=== PATIENT | female | born 1985 | race Caucasian/White ===

== ENCOUNTER 2017-04-16 23:24 | Emergency (ER) | payer OTHER ==
[2017-04-16 23:33] VITALS: BP 147/93; PULSE 116; RESP 20; TEMP 100.5
[2017-04-17] MEDS ORDERED: KETOROLAC 30 MG/ML 1 ML VIAL IM STA (00:35)
[2017-04-17] MEDS ORDERED: CLINDAMYCIN 150 MG CAP PO STA (00:37)
[2017-04-17] MEDS ORDERED: ACETAMINOPHEN TAB 325 MG TAB PO STA (00:38)
--- NOTE | 2017-04-17 00:41 | ED ---
ENT HPI - General Chief complaint: ENT Stated complaint: dental pain Time Seen by Provider: 04/16/17 23:38 Source: patient, RN notes reviewed Mode of arrival: wheelchair Limitations: no limitations - History of Present Illness Initial comments: patient is a 31-year-old of female presents to the emergency room for evaluation dental pain. Patient states she has had dental pain for about a week. She just finished a course of amoxicillin. Patient states she still having pain. Patient states she has an appointment with oral surgeon on to have all of her teeth pulled. Patient states having worsening pain in her right upper tooth. Patient denies any known fevers. Patient denies nausea or vomiting. Patient denies headache or dizziness. Patient denies throat pain , ear pain, chest pain, shortness of breath, nausea, vomiting. - Related Data Home Medications Medication Instructions Recorded Confirmed Amoxicillin 500 mg PO 08/05/16 Previous Rx's Medication Instructions Recorded Acetaminophen-Codeine 300-30mg 1 tab PO Q4H PRN #20 tablet 08/05/16 [Tylenol #3] Clindamycin [Cleocin] 300 mg PO Q6H #40 capsule 04/17/17 HYDROcodone/APAP 5-325MG [Kelly 1 tab PO Q6HR PRN #12 tab 04/17/17 5-325] Allergies Allergy/AdvReac Type Severity Reaction Status Date / Time No Known Allergies Allergy Verified 04/16/17 23:33 Review of Systems ROS Statement: Those systems with pertinent positive or pertinent negative responses have been documented in the HPI. ROS Other: All systems not noted in ROS Statement are negative. Past Medical History Past Medical History: Fibromyalgia, GERD/Reflux, Seizure Disorder Additional Past Medical History / Comment(s): migraines, KIDNEY STONE , RECENT UTI History of Any Multi-Drug Resistant Organisms: None Reported Past Surgical History: Section Additional Past Surgical History / Comment(s): ectopic, rt tube Past Anesthesia/Blood Transfusion Reactions: No Reported Reaction Past Psychological History: Depression Smoking Status: Current every day smoker Past Alcohol Use History: None Reported Past Drug Use History: None Reported - Past Family History Mother Family Medical History: Pneumonia Additional Family Medical History / Comment(s): HEART PROBLEMS PER PT. General Exam - General Exam Comments Initial Comments: sitting in exam room, no acute distress. Limitations: no limitations General appearance: alert, in no apparent distress Head exam: Present: atraumatic, normocephalic, normal inspection Eye exam: Present: normal appearance Expanded Teeth exam: Present: dental caries (multiple), fractured tooth # (7), dental tenderness # (7) Neck exam: Present: normal inspection Respiratory exam: Present: normal lung sounds bilaterally. Absent: respiratory distress Cardiovascular Exam: Present: normal rhythm, tachycardia, normal heart sounds Extremities exam: Present: normal inspection Back exam: Present: normal inspection Neurological exam: Present: alert, oriented X3, CN II-XII intact, normal gait Psychiatric exam: Present: normal affect, normal mood Skin exam: Present: warm, dry, intact, normal color. Absent: rash Course Vital Signs 04/16/17 04/17/17 23:28 00:50 Temperature 100.5 F H 100.5 F H Pulse Rate 116 H 116 H Respiratory 20 20 Rate Blood Pressure 147/93 147/93 O2 Sat by Pulse 99 99 Oximetry Medical Decision Making - Medical Decision Making patient is a 31-year-old female presents to the emergency room for evaluation of dental pain. Patient be placed on clindamycin and pain meds and advised to follow-up with dentist. Patient states she understands everything that was discussed with her. Return parameters discussed. Case discussed Dr. Toth. Disposition Clinical Impression: Dental cavity, Pain, dental Disposition: HOME SELF-CARE Condition: Good Instructions: Dental Caries (ED), Toothache (ED) Additional Instructions: Please follow up with a dentist. If you do not have a dentist, you may contact [facility]. Phone number is [phone] for existing clients. For new clients you may call [phone]. Another option is you have is the [facility]. Phone number is [phone]. Medications as directed. [place] gargles. Cold fluids can sometimes help with pain as well. Return to the Emergency Room for any worsening or changing symptoms. Use cold compresses to the outside of the face. Prescriptions: HYDROcodone/APAP 5-325MG [Kelly 5-325] 1 tab PO Q6HR PRN #12 tab PRN Reason: Pain Clindamycin [Cleocin] 300 mg PO Q6H #40 capsule Referrals: None,Stated [Primary Care Provider] - 1-2 days Time of Disposition: 00:38
== END 2017-04-17 00:49 | disposition home or self-care (01) ==
LOC: EC 23:24
DX: K02.9 Dental caries, unspecified (principal); F17.200 Nicotine dependence, unspecified, uncomplicated
CPT/HCPCS: 99283; 96372; J1885

== ENCOUNTER 2019-01-22 16:17 | Emergency (ER) | payer OTHER ==
[2019-01-22 16:30] VITALS: RESP 22; TEMP 98.6
[2019-01-22 17:19] LABS: Anisocytosis Slight; Basophils % (A) 0 %; Eosinophils % (A) 0 %; HCT 37.1 % (34.0-46.0); HGB 11.5 gm/dL (11.4-16.0); Hypochromasia Slight; Lymphocytes % (A) 31 %; MCH 23.1 pg (25.0-35.0); MCHC 31.1 g/dL (31.0-37.0); MCV 74.3 fL (80.0-100.0); Mean Platelet Volume 7.6; Microcytosis Slight; Monocytes # (A) 0.3 k/uL (0-1.0); Monocytes % (A) 5 %; Neutrophils % (A) 63 %; Platelet Count 226 k/uL (150-450); RBC 4.99 m/uL (3.80-5.40); RDW 16.6 % (11.5-15.5); WBC 6.5 k/uL (3.8-10.6)
[2019-01-22 17:22] LABS: ALT 33 U/L (9-52); AST 27 U/L (14-36); Albumin 4.2 g/dL (3.5-5.0); Alkaline Phosphatase 99 U/L (38-126); Anion Gap 9 mmol/L; Blood Urea Nitrogen 12 mg/dL (7-17); Carbon Dioxide 27 mmol/L (22-30); Chloride 101 mmol/L (98-107); D-Dimer 0.3 mg/L FEU (<0.60); Glucose 90 mg/dL (74-99); Lipase 74 U/L (23-300); Magnesium 1.7 mg/dL (1.6-2.3); Partial Thromboplastin Time 26.2 sec (22.0-30.0); Potassium 3.5 mmol/L (3.5-5.1); Prothrombin Time 10.3 sec (9.0-12.0); Sodium 137 mmol/L (137-145); Total Bilirubin 0.6 mg/dL (0.2-1.3); Total Protein 7.1 g/dL (6.3-8.2)
--- NOTE | 2019-01-22 18:13 | XR ---
EXAMINATION TYPE: XR chest 2V DATE OF EXAM: 01/22/2019 COMPARISON: None HISTORY: 33-year-old female with chest pain TECHNIQUE: PA and lateral views FINDINGS: The cardiomediastinal silhouette, aorta, and pulmonary vasculature are within normal limits. Small am ount of focal opacity at the cardiac apex. No definite consolidation or pleural effusion. IMPRESSION: Focal inferior lingular opacity could represent a prominent epicardial fat pad or focus of early pneu monia. Correlate with patient's symptoms.
--- NOTE | 2019-01-22 19:02 | ED ---
Chest Pain HPI - General Chief Complaint: Chest Pain Stated Complaint: chest pain Time Seen by Provider: 01/22/19 16:36 Source: patient Mode of arrival: ambulatory Limitations: no limitations - History of Present Illness Initial Comments: The patient is a 33-year-old female who presents to the emergency room with complaint of chest pain. The patient notes the pain has been going on for the past 2 months however got progressively worse over the past 2 days. The pain is described as a pressure sensation with intermittent sharp shooting pains. Denie s a pleuritic chest pain. The pain is not reproducible with palpation. She does admit to a cough with yellow sputum production. Admits to chills however denies any fevers. She denies any sick contacts or recent travel. No hemoptysis. She has not taken any medications for her symptoms. She has not followed up with a doctor. She does admit that she has had previous Holter monitoring and an echo. This was done several years ago. She admits to a family history of cardiac disease. Her mother had significant heart problems diagnosed at 42. Patient denies any unilateral calf pain or swelling. No exogenous hormone use. No recent surgeries. She denies ripping or tearing sensation to her back. Denies abdominal pain, nausea or vomiting. She denies any changes in her urination. No changes in her bowel habits. Denies any abnormal vaginal bleeding or discharge. There are no bleeding, precipitating or modifying factors - Related Data Home Medications Medication Instructions Recorded Confirmed Amoxicillin 500 mg PO 08/05/16 Previous Rx's Medication Instructions Recorded Acetaminophen-Codeine 300-30mg 1 tab PO Q4H PRN #20 tablet 08/05/16 [Tylenol #3] Clindamycin [Cleocin] 300 mg PO Q6H #40 capsule 04/17/17 HYDROcodone/APAP 5-325MG [Merom 1 tab PO Q6HR PRN #12 tab 04/17/17 5-325] Amoxic-Pot Clav 875-125Mg 1 tab PO Q12HR 5 Days #10 tablet 01/22/19 [Augmentin 875-125] Azithromycin [Zithromax Z-pack] 250 mg PO DIRECTED #1 pack 01/22/19 Allergies Allergy/AdvReac Type Severity Reaction Status Date / Time No Known Allergies Allergy Verified 04/16/17 23:33 Review of Systems ROS Statement: Those systems with pertinent positive or pertinent negative responses have been documented in the HPI. ROS Other: All systems not noted in ROS Statement are negative. EKG Findings - EKG Comments: EKG Findings:: EKG demonstrates a normal sinus rhythm with a ventricular rate of 98. [place] interval 148. QRS 74. QTC of 459. There are no acute ST segment elevations or depressions concerning for ischemic changes. No signs of Infante Parkinson White or Brugada syndrome. Past Medical History Past Medical History: Fibromyalgia, GERD/Reflux, Seizure Disorder Additional Past Medical History / Comment(s): migraines, KIDNEY STONE , RECENT UTI History of Any Multi-Drug Resistant Organisms: None Reported Past Surgical History: Section Additional Past Surgical History / Comment(s): ectopic, rt tube Past Anesthesia/Blood Transfusion Reactions: No Reported Reaction Past Psychological History: Depression Smoking Status: Current every day smoker Past Alcohol Use History: None Reported Past Drug Use History: None Reported - Past Family History Mother Family Medical History: Pneumonia Additional Family Medical History / Comment(s): HEART PROBLEMS PER PT. General Exam Limitations: no limitations General appearance: alert, in no apparent distress Head exam: Present: atraumatic, normocephalic, normal inspection Eye exam: Present: normal appearance, PERRL, EOMI. Absent: scleral icterus, conjunctival injection, periorbital swelling ENT exam: Present: normal exam, mucous membranes moist Neck exam: Present: normal inspection. Absent: tenderness, meningismus, lymphadenopathy Respiratory exam: Present: normal lung sounds bilaterally. Absent: respiratory distress, wheezes, rales, rhonchi, stridor Cardiovascular Exam: Present: regular rate, normal rhythm, normal heart sounds. Absent: systolic murmur, diastolic murmur, rubs, gallop, clicks GI/Abdominal exam: Present: soft, normal bowel sounds. Absent: distended, tenderness, guarding, rebound, rigid Extremities exam: Present: normal inspection, full ROM, normal capillary refill. Absent: tenderness, pedal edema, joint swelling, calf tenderness Back exam: Present: normal inspection Neurological exam: Present: alert, oriented X3, CN II-XII intact Psychiatric exam: Present: normal affect, normal mood Skin exam: Present: warm, dry, intact, normal color. Absent: rash Course Vital Signs 05/11/19 05/11/19 05/11/19 16:27 18:19 18:20 Temperature 98.6 F Pulse Rate 111 H 91 Respiratory 22 Rate Blood Pressure 149/79 127/78 O2 Sat by Pulse 100 100 100 Oximetry 01/22/19 01/22/19 01/22/19 18:30 18:40 18:50 Temperature Pulse Rate 101 H 87 94 Respiratory Rate Blood Pressure 127/78 127/73 126/81 O2 Sat by Pulse 100 99 100 Oximetry 01/22/19 01/22/19 01/22/19 19:00 19:10 19:20 Temperature Pulse Rate 98 101 H 96 Respiratory Rate Blood Pressure 126/81 144/81 124/77 O2 Sat by Pulse 100 100 100 Oximetry 01/22/19 19:30 Temperature Pulse Rate Respiratory Rate Blood Pressure 124/77 O2 Sat by Pulse Oximetry Chest Pain MDM - Differential Diagnosis Acute chest pain, acute cough, community-acquired pneumonia - MDM The patient was seen by myself in room 22. She is hooked continuous pulse ox and cardiac monitoring. A 12-lead EKG is performed. Laboratory studies were conducted and the patient went for a chest x-ray. She does stay for 2 troponins which are both negative. Because the patient reports a productive cough with an opacity seen in the lingula, I did recommend treatment with antibiotics. Patient did agree to this. She is given a prescription for azithromycin and Augmentin. She is to take the medications as directed and follow-up with her primary care physician. She'll need a repeat chest x-ray in 6 weeks. She'll also need a full cardiac evaluation to include Holter monitoring, stress test and echo. The patient is resting comfortably without signs of respiratory distress. She has no current chest pain at this time. I did inform the patient she should quit smoking. Patient understood this. Should she have any new or worsening symptoms, she should return to the emergency room. The patient was in agreement to the plan and discharge home in stable condition Disposition Clinical Impression: Atypical chest pain, Pneumonia Disposition: HOME SELF-CARE Condition: Stable Instructions (If sedation given, give patient instructions): Chest Pain (ED), Pneumonia (ED) Prescriptions: Amoxic-Pot Clav 875-125Mg [Augmentin 875-125] 1 tab PO Q12HR 5 Days #10 tablet Azithromycin [Zithromax Z-pack] 250 mg PO DIRECTED #1 pack Is patient prescribed a controlled substance at d/c from ED?: No Referrals: None,Stated [Primary Care Provider] - 1-2 days Time of Disposition: 19:44
[2019-01-22 19:36] VITALS: BP 124/77; PULSE 96
== END 2019-01-22 19:46 | disposition home or self-care (01) ==
LOC: EC 16:17
DX: J18.9 Pneumonia, unspecified organism (principal); F17.200 Nicotine dependence, unspecified, uncomplicated
CPT/HCPCS: 36415; 71046; 80053; 83690; 83735; 84484; 85025; 85379; 85610; 85730; 93005; 99285

== ENCOUNTER → 2019-03-28 | Outpatient (CLI) | payer OTHER ==
--- NOTE | 2019-03-28 12:54 | XR ---
EXAMINATION TYPE: XR cervical spine comp DATE OF EXAM: 03/28/2019 COMPARISON: NONE HISTORY: Pain TECHNIQUE: Four views are submitted. FINDINGS: The odontoid is intact. There are no compression deformities. The prevertebral soft tissue structur es are within normal limits. Degenerative disc disease and spurring C5-C6 with straightening of the cervical spine. IMPRESSION: 1. Moderate to severe degenerative disc disease C5-C6. Recommend MRI follow-up.
== END | disposition home or self-care (01) ==
LOC: RADXRMAIN 12:25
PROVIDERS: ATTEND Internal Medicine
DX: M50.322 Other cervical disc degeneration at C5-C6 level (principal)
CPT/HCPCS: 72050

== ENCOUNTER → 2019-04-05 | Outpatient (CLI) | payer OTHER ==
--- NOTE | 2019-04-05 13:03 | MR ---
EXAMINATION TYPE: MR cervical spine wo con DATE OF EXAM: 04/05/2019 COMPARISON: Plain film 03/28/2019 HISTORY: Neck pain TECHNIQUE: Multiplanar, multisequence images of the cervical spine were acquired. C2-C3: Minimal posterior disc bulge. No significant spinal stenosis or foraminal encroachment. C3-C4: There is posterior extension of small disc bulge which may contact the anterior cervical cord. No significant central stenosis or foraminal encroachment. C4-C5: Minimal posterior disc bulge causes slight anterior mass effect on the thecal sac. No signific ant central stenosis or foraminal encroachment. C5-C6: Left posterior paracentral extension of endplate disc complex causes anterolateral mass effect on the thecal sac and possibly cord contact. No significant foraminal encroachment. Only mild spinal stenosis. C6-C7: Minimal posterior disc bulge causes slight anterior mass effect on the thecal sac. No signific ant central stenosis. No foraminal encroachment. C7-T1: No evidence for degenerative disc disease. No disc bulge/herniation or protrusion. No Canal stenosis. Foramina are patent bilaterally. Cervical segments are intact. There is normal alignment. Cervical spinal cord is of normal signal. Craniovertebral junction relationships are within normal limits. There is loss of disc height and s ignal at C5-6, associated spondylosis. IMPRESSION: Mild multilevel degenerative disc disease as described.
== END | disposition home or self-care (01) ==
LOC: RADMRIMAIN 09:00
PROVIDERS: ATTEND Internal Medicine
DX: M50.322 Other cervical disc degeneration at C5-C6 level (principal)
CPT/HCPCS: 72141

== ENCOUNTER → 2019-06-09 | Outpatient (CLI) | payer OTHER ==
[2019-06-09 17:06] LABS: Anisocytosis Slight; HCT 40.3 % (34.0-46.0); HGB 13.4 gm/dL (11.4-16.0); MCH 25.3 pg (25.0-35.0); MCHC 33.2 g/dL (31.0-37.0); MCV 76.3 fL (80.0-100.0); Mean Platelet Volume 7.6; Microcytosis Slight; Platelet Count 222 k/uL (150-450); RBC 5.28 m/uL (3.80-5.40); RDW 17.8 % (11.5-15.5); Reticulocyte % 1.4 % (0.5-2.0); WBC 9.2 k/uL (3.8-10.6)
[2019-06-09 17:12] LABS: Appearance,Urine Cloudy (Clear); Bacteria,Urine Rare /hpf; Bilirubin,Urine Negative (Negative); Blood,Urine Negative (Negative); Color,Urine Yellow; Glucose,Urine (UA) Negative (Negative); Ketones,Urine Trace (Negative); Leukocyte Esterase,Urine Negative (Negative); Mucus,Urine Many /hpf; Nitrite,Urine Negative (Negative); PH, Urine 5.5 (5.0-8.0); Protein,Urine 1+ (Negative); RBC,Urine 4 /hpf (0-5); Specific Gravity,Urine 1.042 (1.001-1.035); Squamous Epithelial Cell,Urine 11 /hpf (0-4); WBC,Urine 4 /hpf (0-5)
[2019-06-09 17:51] LABS: Erythrocyte Sedimentation Rate 10 mm/hr (0-20)
[2019-06-10 00:29] LABS: Hemoglobin A1C 5.2 % (4.0-6.0)
[2019-06-10 00:33] LABS: Anti-DNA, DS unit <1.0 IU/mL; Anti-Smith Ab Interp NEGATIVE (NEGATIVE); Cyclic Citrull Pep IgG Unit <0.5 U/mL; Cyclic Citrullinated Pep IgG NEGATIVE (NEGATIVE); DNA Double-Stranded NEGATIVE (NEGATIVE); Scleroderma SC-70 Ab <0.2 AI
[2019-06-10 00:59] LABS: ALT 19 U/L (8-44); AST 22 U/L (13-35); African American GFR (CKD) 139.8 (60.0-200.0); Albumin/Globulin Ratio 1.91 (1.60-3.17); Alkaline Phosphatase 100 U/L (41-126); C Reactive Protein <0.4 mg/dL (0.0-0.8); Carbon Dioxide 23.4 mmol/L (21.6-31.8); Chloride 108 mmol/L (96-109); Creatine Kinase 69 U/L (26-186); Globulin 2.3 g/dL (1.6-3.3); Glucose 91 mg/dL (70-110); Magnesium 1.8 mg/dL (1.5-2.4); Potassium 3.6 mmol/L (3.5-5.5); Sodium 139 mmol/L (135-145); Total Bilirubin 0.2 mg/dL (0.3-1.2); Total Protein 6.7 g/dL (6.2-8.2)
[2019-06-10 01:00] LABS: Ferritin 6.6 ng/mL (10.0-291.0); Folate, Serum 15.2 ng/mL; Iron Saturation 4.14 (12.00-45.00); Vitamin D 25 Hydroxy 10.2 ng/mL (30.0-100.0)
[2019-06-10 13:37] LABS: Histone Antibody 0.4 UNITS (<1.0)
== END | disposition home or self-care (01) ==
LOC: LABWHC1 16:37
PROVIDERS: ATTEND Psychiatry & Neurology Pain Medicine
DX: G89.4 Chronic pain syndrome (principal); M79.7 Fibromyalgia; M25.50 Pain in unspecified joint; R53.83 Other fatigue; Z79.899 Other long term (current) drug therapy
CPT/HCPCS: 36415; 80053; 81001; 82306; 82550; 82607; 82668; 82728; 82746; 83036; 83516; 83519; 83540; 83550; 83735; 84207; 84425; 84446; 84590; 84591; 84597; 85027; 85045; 85652; 86038; 86140; 86200; 86225; 86235

== ENCOUNTER 2019-07-06 15:53 | Emergency (ER) | payer OTHER ==
[2019-07-06 16:00] VITALS: BP 137/83; PULSE 118; RESP 22; TEMP 99.1
[2019-07-06] MEDS ORDERED: MORPHINE SULFATE 2 MG/ML SYRINGE IM STA (16:04)
--- NOTE | 2019-07-06 16:25 | XR ---
EXAMINATION TYPE: XR ankle complete RT, XR foot complete RT DATE OF EXAM: 07/06/2019 CLINICAL HISTORY: Fall injury with pain. TECHNIQUE: Frontal, lateral and oblique images of the right ankle and foot are obtained. COMPARISON: None. FINDINGS: There is acute oblique minimally displaced fracture through the lateral malleolus extendin g into the mortise with moderate adjacent soft tissue swelling. Ankle mortise symmetry is preserved. The posterior and medial malleoli are intact. The overlying soft tissue appears unremarkable. There is no additional acute fracture or dislocation evident in the right foot. Some flexion of the t oes is present. There are small superior and inferior calcaneal spurs. Overlying soft tissue is unrem arkable. IMPRESSION: There is acute oblique minimally displaced fracture through the lateral malleolus (Mann type B) with associated soft tissue swelling. (Initial encounter closed type posttraumatic fracture )
[2019-07-06] MEDS ORDERED: ACET/COD 300 MG/30 MG STARTER PACK 6 TAB BTL PO STA (16:42)
--- NOTE | 2019-07-06 16:42 | ED ---
Fall HPI - General Chief Complaint: Fall Stated Complaint: Fell ankle injury Time Seen by Provider: 07/06/19 15:57 Source: patient Mode of arrival: wheelchair - History of Present Illness Initial Comments: 27-year-old female presenting today for chief complaint right ankle pain. Patient states that she tripped and fell rolling her right ankle inward. Patient states she has had pain with ambulation since, unable to weight bear. Patient was concerned as fracture given the pain and soft tissue swelling. Patient denies. Knee injury to head neck back or abdomen. Patient denies any injuries of the left lower extremity or upper extremity. Remaining review of system negative. Including denial of numbness tingling loss sensation, coolness pallor of the extremity. - Related Data Home Medications Medication Instructions Recorded Confirmed Amoxicillin 500 mg PO 08/05/16 Previous Rx's Medication Instructions Recorded Acetaminophen-Codeine 300-30mg 1 tab PO Q4H PRN #20 tablet 08/05/16 [Tylenol #3] Clindamycin [Cleocin] 300 mg PO Q6H #40 capsule 04/17/17 HYDROcodone/APAP 5-325MG [Rosebud 1 tab PO Q6HR PRN #12 tab 04/17/17 5-325] Amoxic-Pot Clav 875-125Mg 1 tab PO Q12HR 5 Days #10 tablet 01/22/19 [Augmentin 875-125] Azithromycin [Zithromax Z-pack] 250 mg PO DIRECTED #1 pack 01/22/19 Allergies Allergy/AdvReac Type Severity Reaction Status Date / Time No Known Allergies Allergy Verified 07/06/19 16:00 Review of Systems ROS Statement: Those systems with pertinent positive or pertinent negative responses have been documented in the HPI. ROS Other: All systems not noted in ROS Statement are negative. Past Medical History Past Medical History: Fibromyalgia, GERD/Reflux, Seizure Disorder Additional Past Medical History / Comment(s): migraines, KIDNEY STONE , RECENT UTI History of Any Multi-Drug Resistant Organisms: None Reported Past Surgical History: Section Additional Past Surgical History / Comment(s): ectopic, rt tube Past Anesthesia/Blood Transfusion Reactions: No Reported Reaction Past Psychological History: Depression Smoking Status: Current every day smoker Past Alcohol Use History: None Reported Past Drug Use History: None Reported - Past Family History Mother Family Medical History: Pneumonia Additional Family Medical History / Comment(s): HEART PROBLEMS PER PT. General Exam - General Exam Comments Initial Comments: General: The patient is awake and alert, in no distress, and does not appear acutely ill. Eye: +3 mm pupils are equal, round and reactive to light, extra-ocular movements are intact. No nystagmus. There is normal conjunctiva bilaterally. No signs of icterus. Cardiovascular: There is a regular rate and rhythm. No murmur, rub or gallop is appreciated. Respiratory: Lungs are clear to auscultation, respirations are non-labored, breath sounds are equal. No wheezes, stridor, rales, or rhonchi. Musculoskeletal: Inspection of the ankles bilaterally soft tissue swelling over the lateral malleolus of the right ankle. Point localized tenderness. Patient presented to fully range secondary to pain. Patient strength appears intact no foot drop. No proximal tibia-fibula pain compartments soft and compressible. +2 DP pulses equal comparison bilaterally. No tenderness to palpation of the foot. Neurological: A&O x 3. CN II-XII intact grossly, There are no obvious motor or sensory deficits. Coordination appears grossly intact. Speech is normal. Skin: Skin is warm and dry and no rashes or lesions are noted. Psychiatric: Cooperative, appropriate mood & affect, normal judgment. Limitations: no limitations Course Vital Signs 07/06/19 15:57 Temperature 99.1 F Pulse Rate 118 H Respiratory 22 Rate Blood Pressure 137/83 O2 Sat by Pulse 99 Oximetry Medical Decision Making - Medical Decision Making Imaging studies revealing Mann B distal fibular fracture. Patient neur ovascular intact. Posterior mold with stirrups placed. Neurovascularly intact after splint placed. Patient denies any other areas of injury. Patient instructed to use crutches for ambulation and nonweightbearing until orthopedic surgery follow-up and further evaluation. Case discussed with attending provider patient discharged appearing well Parameters were discussed with patient detail prior to discharge and verbalized understanding Disposition Clinical Impression: Ankle fracture, right, Lateral malleolar fracture, Fall Disposition: HOME SELF-CARE Condition: Good Instructions (If sedation given, give patient instructions): Ankle Fracture (ED), R.I.C.E. Treatment (ED) Additional Instructions: Please use medication as discussed. Please follow-up with orthopedic surgery in the next week for casting and further fracture management. Use crutches for any walking dont weight bear on the right lower leg. Please return to emergency room if the symptoms increase or worsen or for any other concerns. Is patient prescribed a controlled substance at d/c from ED?: No Referrals: Sharon Reddy MD [Primary Care Provider] - 1-2 days Don Gill MD [STAFF PHYSICIAN] - 1-2 days Time of Disposition: 16:41
== END 2019-07-06 17:07 | disposition home or self-care (01) ==
LOC: EC 15:53
DX: S82.61XA Displaced fracture of lateral malleolus of right fibula, initial encounter for closed fracture (principal); F17.200 Nicotine dependence, unspecified, uncomplicated; Z87.440 Personal history of urinary (tract) infections; W01.0XXA Fall on same level from slipping, tripping and stumbling without subsequent striking against object, initial encounter; Y92.009 Unspecified place in unspecified non-institutional (private) residence as the place of occurrence of the external cause
CPT/HCPCS: 73610; 73630; 99283; 29515; J2270

== ENCOUNTER 2019-10-16 17:21 | Emergency (ER) | payer OTHER ==
[2019-10-16 17:30] VITALS: TEMP 98.1
[2019-10-16] MEDS ORDERED: SODIUM CHLORIDE 0.9% 500 ML 500 ML IV STA (17:42)
--- NOTE | 2019-10-16 17:51 | ED ---
General Adult HPI - General Chief complaint: Chest Pain Stated complaint: Chest pain/SOB Time Seen by Provider: 10/16/19 17:42 Source: patient, RN notes reviewed, old records reviewed Mode of arrival: ambulatory Limitations: no limitations - History of Present Illness Initial comments: 34-year-old female presenting for evaluation of left upper chest pain. Patient has had pain for one week. Describes it as a sharp pain. Has been intermittent throughout the last week. She has no previous history of CAD, no history of DVT or PE. She reports a mild cough and dyspnea. She denies lower extremity swelling although she currently is in a boot with a right ankle fracture. She's been wearing this point for approximately 3 months. She denies abdominal pain. Denies nausea vomiting. Patient states her last menstrual period was 2 weeks ago, she denies any chance of at this time. - Related Data Home Medications Medication Instructions Recorded Confirmed Amoxicillin 500 mg PO 08/05/16 Previous Rx's Medication Instructions Recorded Acetaminophen-Codeine 300-30mg 1 tab PO Q4H PRN #20 tablet 08/05/16 [Tylenol #3] Clindamycin [Cleocin] 300 mg PO Q6H #40 capsule 04/17/17 HYDROcodone/APAP 5-325MG [[place] 1 tab PO Q6HR PRN #12 tab 04/17/17 5-325] Amoxic-Pot Clav 875-125Mg 1 tab PO Q12HR 5 Days #10 tablet 01/22/19 [Augmentin 875-125] Azithromycin [Zithromax Z-pack] 250 mg PO DIRECTED #1 pack 01/22/19 Allergies Allergy/AdvReac Type Severity Reaction Status Date / Time No Known Allergies Allergy Verified 10/16/19 17:28 Review of Systems ROS Statement: Those systems with pertinent positive or pertinent negative responses have been documented in the HPI. ROS Other: All systems not noted in ROS Statement are negative. Past Medical History Past Medical History: Fibromyalgia, GERD/Reflux, Seizure Disorder Additional Past Medical History / Comment(s): migraines, KIDNEY STONE History of Any Multi-Drug Resistant Organisms: None Reported Past Surgical History: Section Additional Past Surgical History / Comment(s): ectopic, rt tube Past Anesthesia/Blood Transfusion Reactions: No Reported Reaction Past Psychological History: Depression Smoking Status: Current every day smoker Past Alcohol Use History: None Reported Past Drug Use History: None Reported - Past Family History Mother Family Medical History: Pneumonia Additional Family Medical History / Comment(s): HEART PROBLEMS PER PT. General Exam Limitations: no limitations General appearance: alert, in no apparent distress Head exam: Present: atraumatic, normocephalic Eye exam: Present: normal appearance, PERRL ENT exam: Present: normal exam Neck exam: Present: normal inspection. Absent: tenderness, meningismus Respiratory exam: Present: normal lung sounds bilaterally, chest wall tenderness (Chest wall tenderness at the site of pain complaint). Absent: respiratory distress, wheezes Cardiovascular Exam: Present: normal rhythm, tachycardia GI/Abdominal exam: Present: soft. Absent: distended, tenderness, guarding Extremities exam: Present: normal inspection, normal capillary refill. Absent: pedal edema, calf tenderness Neurological exam: Present: alert, oriented X3, CN II-XII intact. Absent: motor sensory deficit Psychiatric exam: Present: anxious Skin exam: Present: warm, dry, intact. Absent: cyanosis, diaphoretic Course Vital Signs 10/16/19 10/16/19 17:25 19:38 Temperature 98.1 F Pulse Rate 107 H 96 Respiratory 16 18 Rate Blood Pressure 129/79 129/73 O2 Sat by Pulse 100 100 Oximetry EKG Findings - EKG Comments: EKG Findings:: EKG sinus tachycardia, rate of 107, FL interval 142, QRS duration 78, QTC 461, no ST segment elevation Medical Decision Making - Medical Decision Making 34-year-old female presenting with a one-week history of left upper chest pain and mild dyspnea. Patient is anxious, history of anxiety and panic attacks. She has reproducible left upper chest pain. However she is tachycardic and has recent fracture in the right leg. EKG showing sinus tachycardia with no ischemic changes, no ST segment elevation. Chest x-ray negative for focal pneumonia or acute findings. She has normal CBC, normal CMP, negative troponin. I did perform CT angiography given the risk of pulmonary embolism, this is negative for pulmonary embolism. Patient is reassured, she will follow-up with her primary care physician. She will take Motrin for pain. - Lab Data Result diagrams: 10/16/19 18:16 10/16/19 18:16 Lab Results 10/16/19 10/16/19 10/16/19 Range/Units 18:16 18:16 18:16 WBC 9.4 (3.8-10.6) k/uL RBC 5.49 H (3.80-5.40) m/uL Hgb 15.8 (11.4-16.0) gm/dL Hct 48.3 H (34.0-46.0) % MCV 88.0 (80.0-100.0) fL MCH 28.8 (25.0-35.0) pg MCHC 32.7 (31.0-37.0) g/dL RDW 13.5 (11.5-15.5) % Plt Count 236 (150-450) k/uL Neutrophils % 75 % Lymphocytes % 20 % Monocytes % 3 % Eosinophils % 2 % Basophils % 0 % Neutrophils # 7.0 (1.3-7.7) k/uL Lymphocytes # 1.9 (1.0-4.8) k/uL Monocytes # 0.3 (0-1.0) k/uL Eosinophils # 0.2 (0-0.7) k/uL Basophils # 0.0 (0-0.2) k/uL PT 9.9 (9.0-12.0) sec INR 0.9 (<1.2) APTT 24.4 (22.0-30.0) sec Sodium 140 (137-145) mmol/L Potassium 3.8 (3.5-5.1) mmol/L Chloride 106 (98-107) mmol/L Carbon Dioxide 24 (22-30) mmol/L Anion Gap 10 mmol/L BUN 16 (7-17) mg/dL Creatinine 0.58 (0.52-1.04) mg/dL Est GFR (CKD-EPI)AfAm >90 (>60 ml/min/1.73 sqM) Est GFR (CKD-EPI)NonAf >90 (>60 ml/min/1.73 sqM) Glucose 98 (74-99) mg/dL Calcium 9.5 (8.4-10.2) mg/dL Magnesium 2.0 (1.6-2.3) mg/dL Total Bilirubin 0.4 (0.2-1.3) mg/dL AST 22 (14-36) U/L ALT 17 (4-34) U/L Alkaline Phosphatase 106 (38-126) U/L Troponin I (0.000-0.034) ng/mL Total Protein 7.5 (6.3-8.2) g/dL Albumin 4.4 (3.5-5.0) g/dL Lipase 102 (23-300) U/L 10/16/19 Range/Units 18:16 WBC (3.8-10.6) k/uL RBC (3.80-5.40) m/uL Hgb (11.4-16.0) gm/dL Hct (34.0-46.0) % MCV (80.0-100.0) fL MCH (25.0-35.0) pg MCHC (31.0-37.0) g/dL RDW (11.5-15.5) % Plt Count (150-450) k/uL Neutrophils % % Lymphocytes % % Monocytes % % Eosinophils % % Basophils % % Neutrophils # (1.3-7.7) k/uL Lymphocytes # (1.0-4.8) k/uL Monocytes # (0-1.0) k/uL Eosinophils # (0-0.7) k/uL Basophils # (0-0.2) k/uL PT (9.0-12.0) sec INR (<1.2) APTT (22.0-30.0) sec Sodium (137-145) mmol/L Potassium (3.5-5.1) mmol/L Chloride (98-107) mmol/L Carbon Dioxide (22-30) mmol/L Anion Gap mmol/L BUN (7-17) mg/dL Creatinine (0.52-1.04) mg/dL Est GFR (CKD-EPI)AfAm (>60 ml/min/1.73 sqM) Est GFR (CKD-EPI)NonAf (>60 ml/min/1.73 sqM) Glucose (74-99) mg/dL Calcium (8.4-10.2) mg/dL Magnesium (1.6-2.3) mg/dL Total Bilirubin (0.2-1.3) mg/dL AST (14-36) U/L ALT (4-34) U/L Alkaline Phosphatase (38-126) U/L Troponin I <0.012 (0.000-0.034) ng/mL Total Protein (6.3-8.2) g/dL Albumin (3.5-5.0) g/dL Lipase (23-300) U/L Disposition Clinical Impression: Chest pain Disposition: HOME SELF-CARE Condition: Good Instructions (If sedation given, give patient instructions): Chest Pain (ED) Is patient prescribed a controlled substance at d/c from ED?: No Referrals: Sharon Reddy MD [Primary Care Provider] - 1-2 days Time of Disposition: 20:10
[2019-10-16 18:34] LABS: Basophils % (A) 0 %; Eosinophils # (A) 0.2 k/uL (0-0.7); Eosinophils % (A) 2 %; HCT 48.3 % (34.0-46.0); HGB 15.8 gm/dL (11.4-16.0); Lymphocytes # (A) 1.9 k/uL (1.0-4.8); Lymphocytes % (A) 20 %; MCH 28.8 pg (25.0-35.0); MCHC 32.7 g/dL (31.0-37.0); Mean Platelet Volume 7.8; Monocytes # (A) 0.3 k/uL (0-1.0); Monocytes % (A) 3 %; Neutrophils % (A) 75 %; Platelet Count 236 k/uL (150-450); RBC 5.49 m/uL (3.80-5.40); RDW 13.5 % (11.5-15.5); WBC 9.4 k/uL (3.8-10.6)
--- NOTE | 2019-10-16 18:38 | XR ---
EXAMINATION TYPE: XR chest 2V DATE OF EXAM: 10/16/2019 COMPARISON: 01/22/2019 HISTORY: Chest pain TECHNIQUE: 2 views FINDINGS: Heart and mediastinum are normal. Lungs are clear. Diaphragm is normal. Bony thorax is inta ct. IMPRESSION: Normal chest. No change.
[2019-10-16 18:45] LABS: ALT 17 U/L (4-34); AST 22 U/L (14-36); African American GFR (CKD) >90 (>60 ml/min/1.73 sqM); Albumin 4.4 g/dL (3.5-5.0); Alkaline Phosphatase 106 U/L (38-126); Anion Gap 10 mmol/L; Blood Urea Nitrogen 16 mg/dL (7-17); Calcium 9.5 mg/dL (8.4-10.2); Carbon Dioxide 24 mmol/L (22-30); Chloride 106 mmol/L (98-107); Glucose 98 mg/dL (74-99); Non-African American GFR(CKD) >90 (>60 ml/min/1.73 sqM); Potassium 3.8 mmol/L (3.5-5.1); Sodium 140 mmol/L (137-145); Total Bilirubin 0.4 mg/dL (0.2-1.3); Total Protein 7.5 g/dL (6.3-8.2)
[2019-10-16 18:57] LABS: INR 0.9 (<1.2); Partial Thromboplastin Time 24.4 sec (22.0-30.0); Prothrombin Time 9.9 sec (9.0-12.0)
[2019-10-16 19:38] VITALS: BP 129/73; PULSE 96; RESP 18
--- NOTE | 2019-10-16 19:56 | CT ---
EXAMINATION TYPE: CT angio chest DATE OF EXAM: 10/16/2019 COMPARISON: None HISTORY: Chest pain, SOB. PT denies pulmonary/cardiac hx CT DLP: 496.8 mGycm Automated exposure control for dose reduction was used. CONTRAST: Performed with IV Contrast, patient injected with 100 mL of Isovue 370. Multiple axial sections were obtained from the thoracic inlet to the diaphragm with intravenous contr ast. There are 3-D post processed images. The lungs are clear of infiltrate. There is no pleural effusion or pneumothorax. Heart size is normal . There is no pericardial effusion. There is no mediastinal adenopathy. There are no hilar masses. Th e bony thorax is intact. There is normal contrast opacification of the pulmonary arteries. There are no filling defects. Thora cic aorta is intact. There is no aneurysm or dissection. Bony thorax is intact. IMPRESSION: Negative exam. No evidence of pulmonary embolism.
== END 2019-10-16 20:48 | disposition home or self-care (01) ==
LOC: EC 17:21
DX: R07.89 Other chest pain (principal); R06.00 Dyspnea, unspecified; R00.0 Tachycardia, unspecified; F41.0 Panic disorder [episodic paroxysmal anxiety]; F17.200 Nicotine dependence, unspecified, uncomplicated
CPT/HCPCS: 36415; 93005; 80053; 83690; 83735; 84484; 85025; 85610; 85730; 71046; 71275; 99285; Q9967

== ENCOUNTER 2020-01-16 13:47 | Emergency (ER) | payer OTHER ==
--- NOTE | 2020-01-16 14:09 | ED ---
Chest Pain HPI - General Chief Complaint: Chest Pain Stated Complaint: chest tightness Time Seen by Provider: 01/16/20 13:53 Source: patient Mode of arrival: ambulatory Limitations: no limitations - History of Present Illness Initial Comments: Patient is a 34-year-old female with history of anxiety and pneumonia presenting to the emergency department with a chief complaint of chest congestion and cough. Patient states cough and congestion for last 3 days with gradual increase in severity. Patient does report a productive cough. States she appears to have pneumonia on this one feels like it. Denies any shortness of breath but does report chest discomfort. Denies history of asthma but doesn't report smoking. Patient is not taking oral control. Denies unilateral leg swelling. Denies any hemoptysis. Denies taking medication to alleviate the symptoms. States she has been feeling more anxious ever since the onset of symptoms due to concern for coronavirus. - Related Data Home Medications Medication Instructions Recorded Confirmed Amoxicillin 500 mg PO 08/05/16 Previous Rx's Medication Instructions Recorded Acetaminophen-Codeine 300-30mg 1 tab PO Q4H PRN #20 tablet 08/05/16 [Tylenol #3] Clindamycin [Cleocin] 300 mg PO Q6H #40 capsule 04/17/17 HYDROcodone/APAP 5-325MG [[place] 1 tab PO Q6HR PRN #12 tab 04/17/17 5-325] Amoxic-Pot Clav 875-125Mg 1 tab PO Q12HR 5 Days #10 tablet 01/22/19 [Augmentin 875-125] Azithromycin [Zithromax Z-pack] 250 mg PO DIRECTED #1 pack 01/22/19 Azithromycin [Zithromax Z-pack] 0 mg PO DIRECTED #6 tab 01/16/20 Allergies Allergy/AdvReac Type Severity Reaction Status Date / Time No Known Allergies Allergy Verified 01/16/20 13:52 Review of Systems ROS Statement: Those systems with pertinent positive or pertinent negative responses have been documented in the HPI. ROS Other: All systems not noted in ROS Statement are negative. EKG Findings - EKG Comments: EKG Findings:: Sinus tachycardia, ventricular rate 114, NV 150, QRS 60, QTC 474. Past Medical History Past Medical History: Fibromyalgia, GERD/Reflux, Seizure Disorder Additional Past Medical History / Comment(s): migraines, KIDNEY STONE History of Any Multi-Drug Resistant Organisms: None Reported Past Surgical History: Section Additional Past Surgical History / Comment(s): ectopic, rt tube Past Anesthesia/Blood Transfusion Reactions: No Reported Reaction Past Psychological History: Depression Smoking Status: Current every day smoker Past Alcohol Use History: None Reported Past Drug Use History: None Reported - Past Family History Mother Family Medical History: Pneumonia Additional Family Medical History / Comment(s): HEART PROBLEMS PER PT. General Exam Limitations: no limitations General appearance: alert, anxious Head exam: Present: atraumatic, normocephalic, normal inspection Eye exam: Present: normal appearance, PERRL, EOMI Pupils: Present: normal accommodation ENT exam: Present: normal exam, normal oropharynx, mucous membranes moist, TM's normal bilaterally, normal external ear exam Neck exam: Present: normal inspection, full ROM. Absent: lymphadenopathy Respiratory exam: Present: normal lung sounds bilaterally. Absent: respiratory distress, wheezes, rales Cardiovascular Exam: Present: regular rate, normal rhythm, normal heart sounds GI/Abdominal exam: Present: soft. Absent: distended, tenderness, guarding, rebound Extremities exam: Present: normal inspection, full ROM, normal capillary refill. Absent: calf tenderness Back exam: Present: normal inspection, full ROM Neurological exam: Present: alert, oriented X3 Psychiatric exam: Present: normal affect, normal mood Skin exam: Present: warm, dry, intact, normal color Course Vital Signs 01/16/20 01/16/20 13:48 15:46 Temperature 98.4 F 98.1 F Pulse Rate 117 H 103 H Respiratory 20 18 Rate Blood Pressure 123/56 122/69 O2 Sat by Pulse 99 99 Oximetry Chest Pain MDM - Differential Diagnosis Pneumonia - MDM Patient is a 34-year-old female with history of anxiety and pneumonia presenting to the emergency department with chief complaint of cough and chest tightness. Physical examination is not indicative of any wheezing or respiratory distress. Patient does appear to be anxious which I suspect is causing the elevated heart rate. Patient is otherwise well-appearing. Chest x-ray is indicative of a right middle lobe infiltrate that is developing. Vitals are stable aside from a borderline tachycardia on discharge. Patient given a gram of Rocephin in the ED. Patient will be discharged with a 5 day course of azithromycin. Return parameters thoroughly discussed with patient is a 17 agreeable. Advised to follow with primary care.I counseled the patient for smoking cessation for greater than 3 minutes. Case discussed with physician. Disposition Clinical Impression: Pneumonia Disposition: HOME SELF-CARE Condition: Stable Instructions (If sedation given, give patient instructions): Chest Pain (ED) Additional Instructions: Take prescribed medication as directed. Return to emergency department if symp toms worsen. Avoid smoking. Prescriptions: Azithromycin [Zithromax Z-pack] 0 mg PO DIRECTED #6 tab Is patient prescribed a controlled substance at d/c from ED?: No Referrals: Sharon Reddy MD [Primary Care Provider] - 1-2 days Time of Disposition: 15:40
--- NOTE | 2020-01-16 14:47 | XR ---
EXAMINATION TYPE: XR chest 2V DATE OF EXAM: 01/16/2020 COMPARISON: 2-20 HISTORY: Cough TECHNIQUE: Frontal and lateral views of the chest are obtained. FINDINGS: There is mild increased density right medial lung base suggesting a developing infiltrate. Correlate clinically. No evidence for pneumothorax. No pleural effusion. The cardiac silhouette size is within normal limits. The osseous structures are grossly intact. IMPRESSION: 1. There is mild increased density right medial lung base suggesting a developing infiltrate. Correl ate clinically.
[2020-01-16] MEDS ORDERED: cefTRIAXone 1,000 MG VIAL (IM USE) IM STA (15:27)
[2020-01-16 15:50] VITALS: BP 122/69; PULSE 103; RESP 18; TEMP 98.1
== END 2020-01-16 15:46 | disposition home or self-care (01) ==
LOC: EC 13:47
DX: J18.9 Pneumonia, unspecified organism (principal); Z20.828 Contact with and (suspected) exposure to other viral communicable diseases; F17.200 Nicotine dependence, unspecified, uncomplicated; Z83.6 Family history of other diseases of the respiratory system
CPT/HCPCS: 93005; 87635; 71046; 99285; 96372; J0696

== ENCOUNTER 2020-02-10 10:24 | Emergency (ER) | payer OTHER ==
[2020-02-10 10:32] VITALS: BP 129/87; RESP 18; TEMP 98.3
[2020-02-10] MEDS ORDERED: DEXAMETHASONE SOD PHOSPHATE 10 MG/ML 1 ML VIAL IM STA (10:56)
--- NOTE | 2020-02-10 11:11 | ED ---
General Adult HPI - General Chief complaint: ENT Stated complaint: throat feels like its closing Time Seen by Provider: 02/10/20 10:39 Source: patient, RN notes reviewed Mode of arrival: ambulatory Limitations: no limitations - History of Present Illness Initial comments: 34-year-old female with a past medical history of GERD, fibromyalgia, migraines, kidney stones presents to the emergency department for a chief complaint of sore throat. Patient states she has had discomfort in her throat for the past 2 days. States it feels swollen and like it is closing. However patient denies any difficulty breathing through throat or difficulty swallowing solids or liquids.Patient has no other complaints at this time including shortness of breath, chest pain, abdominal pain, nausea or vomiting, headache, or visual changes. - Related Data Home Medications Medication Instructions Recorded Confirmed Amoxicillin 500 mg PO 08/05/16 Previous Rx's Medication Instructions Recorded Acetaminophen-Codeine 300-30mg 1 tab PO Q4H PRN #20 tablet 08/05/16 [Tylenol #3] Clindamycin [Cleocin] 300 mg PO Q6H #40 capsule 04/17/17 HYDROcodone/APAP 5-325MG [[place] 1 tab PO Q6HR PRN #12 tab 04/17/17 5-325] Amoxic-Pot Clav 875-125Mg 1 tab PO Q12HR 5 Days #10 tablet 01/22/19 [Augmentin 875-125] Azithromycin [Zithromax Z-pack] 250 mg PO DIRECTED #1 pack 01/22/19 Azithromycin [Zithromax Z-pack] 0 mg PO DIRECTED #6 tab 01/16/20 Fluticasone Nasal [place] [Flonase 1 spray EA NOSTRIL DAILY 7 Days #1 02/10/20 Nasal [place]] bottle Loratadine [Claritin] 10 mg PO DAILY #20 tab 02/10/20 Allergies Allergy/AdvReac Type Severity Reaction Status Date / Time No Known Allergies Allergy Verified 02/10/20 10:31 Review of Systems ROS Statement: Those systems with pertinent positive or pertinent negative responses have been documented in the HPI. ROS Other: All systems not noted in ROS Statement are negative. Past Medical History Past Medical History: Fibromyalgia, GERD/Reflux, Seizure Disorder Additional Past Medical History / Comment(s): migraines, KIDNEY STONE History of Any Multi-Drug Resistant Organisms: None Reported Past Surgical History: Section Additional Past Surgical History / Comment(s): ectopic, rt tube Past Anesthesia/Blood Transfusion Reactions: No Reported Reaction Past Psychological History: Depression Smoking Status: Current every day smoker Past Alcohol Use History: None Reported Past Drug Use History: None Reported - Past Family History Mother Family Medical History: Pneumonia Additional Family Medical History / Comment(s): HEART PROBLEMS PER PT. General Exam Limitations: no limitations General appearance: alert, in no apparent distress Head exam: Present: atraumatic, normocephalic, normal inspection Eye exam: Present: normal appearance, PERRL, EOMI. Absent: scleral icterus, conjunctival injection, periorbital swelling ENT exam: Present: normal exam, mucous membranes moist, TM's normal bilaterally, normal external ear exam. Absent: normal oropharynx (erythematous but patent oropharynx, no tonsillar exudates, uvula midline) Neck exam: Present: normal inspection, full ROM. Absent: tenderness, meningismus, lymphadenopathy Respiratory exam: Present: normal lung sounds bilaterally. Absent: respiratory distress, wheezes, rales, rhonchi, stridor Cardiovascular Exam: Present: regular rate, normal rhythm, normal heart sounds. Absent: systolic murmur, diastolic murmur, rubs, gallop, clicks GI/Abdominal exam: Present: soft, normal bowel sounds. Absent: distended, tenderness, guarding, rebound, rigid Neurological exam: Present: alert Psychiatric exam: Present: normal affect, normal mood Course Vital Signs 02/10/20 02/10/20 02/10/20 10:25 11:42 12:02 Temperature 98.3 F Pulse Rate 124 H 104 H 101 H Respiratory 18 Rate Blood Pressure 129/87 O2 Sat by Pulse 100 Oximetry Procedures - Smoking Cessation Time Spent Discussing Smoking Cessation w/Patient (Minutes): 3 Patient Acknowledges Need for Cessation: Yes Medical Decision Making - Medical Decision Making Patient presents initially tachycardic with a heart rate of 124 which she states she is very anxious. This did improve throughout her stay. Patient is afebrile. Physical exam does reveal an erythematous oropharynx with some mild postnasal drainage. Uvula midline, no tonsillar exudate bilaterally. No evidence of peritonsillar abscess. Patient able to eat and drink here in the emergency room. She is not distressed. She is handling oral secretions without difficulty. Patient was given IM Decadron. Strep is negative. I will start her on a nasal spray and ALLERGY medication for component of postnasal drip. Culture will be sent of oral swab for other signs of strep. Patient will return for any worsening symptoms and will otherwise follow up with primary care. - Lab Data Lab Results 02/10/20 Range/Units 11:21 Group A Strep Rapid Negative (Negative) Disposition Clinical Impression: Pharyngitis Disposition: HOME SELF-CARE Condition: Good Instructions (If sedation given, give patient instructions): Pharyngitis (ED) Additional Instructions: Please take prescriptions as directed. Please follow-up with primary care in 1- 2 days. If you have worsening symptoms or symptoms are not improving return to the emergency department. Prescriptions: Loratadine [Claritin] 10 mg PO DAILY #20 tab Fluticasone Nasal [place] [Flonase Nasal [place]] 1 spray EA NOSTRIL DAILY 7 Days #1 bottle Is patient prescribed a controlled substance at d/c from ED?: No Referrals: Sharon Reddy MD [Primary Care Provider] - 1-2 days Time of Disposition: 12:12
[2020-02-10 12:40] VITALS: PULSE 102
== END 2020-02-10 12:39 | disposition home or self-care (01) ==
LOC: EC 10:24
DX: J02.9 Acute pharyngitis, unspecified (principal); F41.9 Anxiety disorder, unspecified; F17.200 Nicotine dependence, unspecified, uncomplicated
CPT/HCPCS: 96372; 99283; 99406; 87081; 87430; J1100

== ENCOUNTER 2020-02-19 15:42 | Emergency (ER) | payer OTHER ==
[2020-02-19 16:01] VITALS: TEMP 99.1
--- NOTE | 2020-02-19 16:38 | ED ---
ENT HPI - General Chief complaint: ENT Stated complaint: Recheck Throat Pain Time Seen by Provider: 02/19/20 16:24 Source: patient Mode of arrival: ambulatory Limitations: no limitations - History of Present Illness Initial comments: Patient is a 34-year-old female with history of anxiety presenting to emergency Department with a chief complaint of throat discomfort. Patient states she was in the emergency department last week for the exact same chief complaint and was discharged after some steroids. States she went to see her primary care who pre scribed her antibiotic, inhaler and more steroids. States she is not feeling any improvement in symptoms. States her anxiety levels keep going on because she feels like her throat was closing up. She denies any respiratory distress or difficulty breathing. Denies odontophagia or dysphagia. Denies any night sweats fevers or chills. Denies any dental pain or recent dental work. Denies any facial swelling. - Related Data Home Medications Medication Instructions Recorded Confirmed Amoxicillin 500 mg PO 08/05/16 Previous Rx's Medication Instructions Recorded Acetaminophen-Codeine 300-30mg 1 tab PO Q4H PRN #20 tablet 08/05/16 [Tylenol #3] Clindamycin [Cleocin] 300 mg PO Q6H #40 capsule 04/17/17 HYDROcodone/APAP 5-325MG [Catlin 1 tab PO Q6HR PRN #12 tab 04/17/17 5-325] Amoxic-Pot Clav 875-125Mg 1 tab PO Q12HR 5 Days #10 tablet 01/22/19 [Augmentin 875-125] Azithromycin [Zithromax Z-pack] 250 mg PO DIRECTED #1 pack 01/22/19 Azithromycin [Zithromax Z-pack] 0 mg PO DIRECTED #6 tab 01/16/20 Fluticasone Nasal Louise [Flonase 1 spray EA NOSTRIL DAILY 7 Days #1 02/10/20 Nasal Louise] bottle Loratadine [Claritin] 10 mg PO DAILY #20 tab 02/10/20 Allergies Allergy/AdvReac Type Severity Reaction Status Date / Time No Known Allergies Allergy Verified 02/19/20 16:01 Review of Systems ROS Statement: Those systems with pertinent positive or pertinent negative responses have been documented in the HPI. ROS Other: All systems not noted in ROS Statement are negative. Past Medical History Past Medical History: Fibromyalgia, GERD/Reflux, Seizure Disorder Additional Past Medical History / Comment(s): migraines, KIDNEY STONE, History of Any Multi-Drug Resistant Organisms: None Reported Past Surgical History: Section Additional Past Surgical History / Comment(s): ectopic, rt tube, Past Anesthesia/Blood Transfusion Reactions: No Reported Reaction Past Psychological History: Depression Smoking Status: Current every day smoker Past Alcohol Use History: None Reported Past Drug Use History: None Reported - Past Family History Mother Family Medical History: Pneumonia Additional Family Medical History / Comment(s): HEART PROBLEMS PER PT. General Exam Limitations: no limitations General appearance: alert, anxious Head exam: Present: atraumatic, normocephalic, normal inspection Eye exam: Present: normal appearance, PERRL, EOMI Pupils: Present: normal accommodation ENT exam: Present: normal exam, normal oropharynx (No tonsillar erythema, swelling or exudates. Uvula midline. No tenderness in the floor the mouth.), mucous membranes moist Neck exam: Present: normal inspection, full ROM, thyromegaly. Absent: tenderness, meningismus, lymphadenopathy Respiratory exam: Present: normal lung sounds bilaterally. Absent: wheezes Cardiovascular Exam: Present: regular rate, normal rhythm, normal heart sounds Extremities exam: Present: normal inspection, full ROM Back exam: Present: normal inspection, full ROM Neurological exam: Present: alert, oriented X3 Psychiatric exam: Present: normal affect, anxious Skin exam: Present: warm, dry, intact, normal color Course Vital Signs 02/19/20 02/19/20 15:58 17:49 Temperature 99.1 F Pulse Rate 115 H 90 Respiratory 17 18 Rate Blood Pressure 143/88 120/81 O2 Sat by Pulse 100 97 Oximetry Medical Decision Making - Medical Decision Making Patient 34-year-old female presenting to emergency Department with a chief complaint of throat discomfort. Exam patient does appear to have mild thyromegaly. No lymphadenopathy or any cervical tenderness. ENT examination is unremarkable. No signs of Jg's angina. Soft tissue neck performed and is unremarkable. I suspect this is thyroid related swelling. Patient is not in any respiratory distress. No dysphasia or down aphasia. Advised the patient to follow up with her PCP for further management. return parameters were discussed with patient who is understanding and agreeable. case discussed with physician Disposition Clinical Impression: Throat discomfort Disposition: HOME SELF-CARE Condition: Stable Instructions (If sedation given, give patient instructions): Hyperthyroidism (ED) Additional Instructions: Follow-up with your primary care. Return to emergency department if symptoms worsen. Is patient prescribed a controlled substance at d/c from ED?: No Referrals: Sharon Reddy MD [Primary Care Provider] - 1-2 days Time of Disposition: 17:40
--- NOTE | 2020-02-19 17:03 | XR ---
EXAMINATION TYPE: XR soft tissue neck DATE OF EXAM: 02/19/2020 COMPARISON: 03/28/2019 HISTORY: Swelling, pain in throat TECHNIQUE: 2 view soft tissue neck FINDINGS: Prevertebral space is normal. Subglottic airway is normal. Vallecula is unremarkable. Epigl ottis appears normal. Note is made of some degenerative disc changes present C6-7. IMPRESSION: 1. Unremarkable soft tissue neck
[2020-02-19 17:50] VITALS: BP 120/81; PULSE 90; RESP 18
== END 2020-02-19 17:49 | disposition home or self-care (01) ==
LOC: EC 15:42
DX: R07.0 Pain in throat (principal); F41.9 Anxiety disorder, unspecified; E01.0 Iodine-deficiency related diffuse (endemic) goiter; F17.200 Nicotine dependence, unspecified, uncomplicated
CPT/HCPCS: 70360; 99283

== ENCOUNTER → 2020-02-23 | Outpatient (CLI) | payer OTHER | END | disposition home or self-care (01) | LOC: LABWHC1 12:08 | PROVIDERS: ATTEND Internal Medicine | DX: E01.0 Iodine-deficiency related diffuse (endemic) goiter (principal) | CPT/HCPCS: 36415; 84439; 84443; 84481 ==

== ENCOUNTER → 2020-03-01 | Outpatient (CLI) | payer OTHER ==
--- NOTE | 2020-03-01 15:51 | US ---
EXAMINATION TYPE: US thyroid st tissue head/neck DATE OF EXAM: 03/01/2020 COMPARISON: CT cervical spine December 07, 2012 CLINICAL HISTORY: R22.0 Neck mass. Patient states neck feels swollen. GLAND SIZE: Right Lobe: 4.7 x 1.6 by 2.1 cm Overall Parenchyma: heterogenous Left Lobe: 3.6 x 1.3 x 1.7 cm Overall Parenchyma: heterogeneous Isthmus Thickness: 0.3 cm NODULES RIGHT: # of nodules measured on right: 2 1. 0.9 X 0.6 x 0.5 cm hypoechoic nodule at the mid pole with well-defined margins. This nodule is wider than tall and shows intranodular vascularity. Prior size: no prior 2. 0.5 X 0.6 x 0.4 cm hypoechoic nodule at the mid pole with well-defined margins. This nodule is w ider than tall and shows intranodular vascularity. Prior size: No prior LEFT: # of nodules measured on left: 1 1. 0.7 X 0.6 x 0.3 cm hypoechoic nodule at the Medial mid pole with well-defined margins. This nod ule is wider than tall and shows intranodular vascularity. Prior size: No prior ISTHMUS: # of nodules measured in the isthmus: 0 Bilateral neck scanned, no evidence of lymphadenopathy. Slightly heterogeneous normal-sized thyroid with few small scattered subcentimeter nodules marked by technologist. IMPRESSION: As above. No suspicious greater than 1 cm nodules are identified.
== END | disposition home or self-care (01) ==
LOC: RADUSWWP 15:09
PROVIDERS: ATTEND Internal Medicine
DX: E04.1 Nontoxic single thyroid nodule (principal); R22.0 Localized swelling, mass and lump, head
CPT/HCPCS: 76536

== ENCOUNTER 2020-04-24 12:18 | Emergency (ER) | payer OTHER ==
[2020-04-24 12:38] VITALS: TEMP 98.7
[2020-04-24] MEDS ORDERED: IPRATROPIUM-ALBUTEROL 3 ML NEB INHALATION STA (13:11)
--- NOTE | 2020-04-24 13:17 | ED ---
General Adult HPI - General Chief complaint: Chest Pain Stated complaint: SOB, Chest pain, confused, sore throat Time Seen by Provider: 04/24/20 12:35 Source: patient, RN notes reviewed, old records reviewed Mode of arrival: ambulatory Limitations: no limitations - History of Present Illness Initial comments: This is a 34-year-old female presents emergency Department complaining of chest tightness and a little bit of a sore throat. Patient states she's been having similar symptoms since the beginning of the year. Patient states she's been in the emergency department multiple times. Patient states she is a smoker and continues to smoke. Patient states she does not use her inhaler because sometimes he gets anxiety. Patient denies any fever chills or cough. Patient denies any chest pain or heaviness she describes it as a tightness. Patient denies shortness of breath. Patient denies any swelling in the legs or calf tenderness. Patient denies any control. Patient denies any recent nausea or vomiting. - Related Data Home Medications Medication Instructions Recorded Confirmed Ferrous Sulfate [Feosol] 325 mg PO DAILY 04/24/20 04/24/20 Gabapentin 300 mg PO BID@0800,1400 04/24/20 04/24/20 Gabapentin [Neurontin] 600 mg PO HS 04/24/20 04/24/20 Ketorolac [Toradol] 10 mg PO TID PRN 04/24/20 04/24/20 Nortriptyline HCl 75 mg PO HS 04/24/20 04/24/20 Phentermine HCl 18.75 mg PO AC-BRKFST 04/24/20 04/24/20 tiZANidine [Zanaflex] 2 mg PO BID PRN 04/24/20 04/24/20 traMADol HCl [Ultram] 50 mg PO TID PRN 04/24/20 04/24/20 Previous Rx's Medication Instructions Recorded Albuterol Inhaler [Ventolin Hfa 2 puff INHALATION RT-TID #2 puff 04/24/20 Inhaler] Allergies Allergy/AdvReac Type Severity Reaction Status Date / Time No Known Allergies Allergy Verified 04/24/20 14:08 Review of Systems ROS Statement: Those systems with pertinent positive or pertinent negative responses have been documented in the HPI. ROS Other: All systems not noted in ROS Statement are negative. Past Medical History Past Medical History: Fibromyalgia, GERD/Reflux, Seizure Disorder Additional Past Medical History / Comment(s): migraines, KIDNEY STONE, History of Any Multi-Drug Resistant Organisms: None Reported Past Surgical History: Section Additional Past Surgical History / Comment(s): ectopic, rt tube, Past Anesthesia/Blood Transfusion Reactions: No Reported Reaction Past Psychological History: Depression Past Alcohol Use History: None Reported Past Drug Use History: None Reported - Past Family History Mother Family Medical History: Pneumonia Additional Family Medical History / Comment(s): HEART PROBLEMS PER PT. General Exam - General Exam Comments Initial Comments: GENERAL: Patient is well-developed and well-nourished. Patient is nontoxic and well-hy drated and is in no acute distress. ENT: Neck is soft and supple. No significant lymphadenopathy is noted. Oropharynx is clear. Moist mucous membranes. Neck has full range of motion without elici ting any pain. EYES: The sclera were anicteric and conjunctiva were pink and moist. Extraocular movements were intact and pupils were equal round and reactive to light. Eyelids were unremarkable. PULMONARY: Patient is slight expiratory wheezing CARDIOVASCULAR: There is a regular rate and rhythm without any murmurs gallops or rubs. ABDOMEN: Soft and nontender with normal bowel sounds. No palpable organomegaly was noted. There is no palpable pulsatile mass. SKIN: Skin is clear with no lesions or rashes and otherwise unremarkable. NEUROLOGIC: Patient is alert and oriented x3. Cranial nerves II through XII are grossly intact. Motor and sensory are also intact. Normal speech, volume and content. Symmetrical smile. MUSCULOSKELETAL: Normal extremities with adequate strength and full range of motion. No lower extremity swelling or edema. No calf tenderness. LYMPHATICS: No significant lymphadenopathy is noted PSYCHIATRIC: Normal psychiatric evaluation. Limitations: no limitations Course Vital Signs 04/24/20 04/24/20 04/24/20 12:35 12:59 13:26 Temperature 98.7 F 98.7 F Pulse Rate 95 86 Pulse Rate [ 90 [employer] ] Respiratory 18 17 Rate Blood Pressure 136/88 126/86 O2 Sat by Pulse 100 98 Oximetry 04/24/20 04/24/20 13:48 14:00 Temperature Pulse Rate 90 92 Pulse Rate [ [employer] ] Respiratory Rate Blood Pressure O2 Sat by Pulse Oximetry Medical Decision Making - Medical Decision Making EKG shows normal sinus rhythm rate is 94 bpm [place] interval is 134 QRS is 78 QT interval 358 QTC is 447. Patient's EKG shows no ST segment elevation or T wave abnormalities. I gave the patient a breathing treatment and she stated after she was no longer short of breath. Chest x-ray showed no acute abnormality. Disposition Clinical Impression: Acute bronchospasm Disposition: HOME SELF-CARE Condition: Good Instructions (If sedation given, give patient instructions): Bronchospasm (ED) Prescriptions: Albuterol Inhaler [Ventolin Hfa Inhaler] 2 puff INHALATION RT-TID #2 puff Is patient prescribed a controlled substance at d/c from ED?: No Referrals: Sharon Reddy MD [Primary Care Provider] - 1-2 days Time of Disposition: 14:37
--- NOTE | 2020-04-24 13:37 | XR ---
EXAMINATION TYPE: XR chest 2V DATE OF EXAM: 04/24/2020 COMPARISON: 01/16/2020 TECHNIQUE: PA and lateral views submitted. HISTORY: Chest pain FINDINGS: The lungs are clear and there is no pneumothorax, pleural effusion, or focal pneumonia. Heart size normal. No overt failure. Pectus deformity stable. IMPRESSION: 1. No acute process.
[2020-04-24 15:31] VITALS: BP 120/77; PULSE 95; RESP 18
== END 2020-04-24 15:08 | disposition home or self-care (01) ==
LOC: EC 12:18
DX: J98.01 Acute bronchospasm (principal); F32.9 Major depressive disorder, single episode, unspecified; Z79.899 Other long term (current) drug therapy
CPT/HCPCS: 71046; 93005; 94640; 99285

== ENCOUNTER → 2020-06-27 | Outpatient (CLI) | payer OTHER ==
--- NOTE | 2020-06-27 14:59 | NM ---
EXAMINATION TYPE: NM thyroid image only DATE OF EXAM: 06/27/2020 COMPARISON: Thyroid ultrasound 03/01/2020 HISTORY: R22.0, swelling/mass palpable abnormality if neck TECHNIQUE: After the intravenous administration of 9.69 mCi Tc 99m Sodium Pertechnetate. FINDINGS: The right thyroid lobe is mildly larger than the left lobe, consistent with 03/01/2020 ultrasound find ings. There is homogenous uptake. No significant focal abnormality. IMPRESSION: Normal thyroid scan.
== END | disposition home or self-care (01) ==
LOC: RADNMMAIN 10:49
PROVIDERS: ATTEND Internal Medicine
DX: R22.0 Localized swelling, mass and lump, head (principal)
CPT/HCPCS: 78013; A9512

== ENCOUNTER 2021-06-21 08:22 | Emergency (ER) | payer OTHER ==
[2021-06-21 08:27] VITALS: TEMP 98.2
[2021-06-21] MEDS ORDERED: ASPIRIN 81 MG PO STA (08:43)
[2021-06-21] MEDS ORDERED: KETOROLAC 15 MG/ML 1 ML VIAL IVP STA (08:44)
--- NOTE | 2021-06-21 08:49 | ED ---
General Adult HPI - General Chief complaint: Chest Pain Stated complaint: Chest Pain Time Seen by Provider: 06/21/21 08:31 Source: patient, RN notes reviewed Mode of arrival: ambulatory Limitations: no limitations - History of Present Illness Initial comments: Patient is a pleasant 36-year-old female presenting to the emergency Department with complaints of chest discomfort. Symptoms have been steady for the last 2 days. Discomfort feels sharp. Discomfort is anterior chest and increases with deep breaths. Patient states mild cough last night. Patient tried an inhaler without improvement of symptoms. Patient does feel short of breath with this. No leg pain or leg swelling. No fever. No nausea or diaphoresis. - Related Data Home Medications Medication Instructions Recorded Confirmed Ferrous Sulfate [Feosol] 325 mg PO DAILY 04/24/20 06/21/21 Gabapentin 300 mg PO BID@0800,1400 04/24/20 06/21/21 Gabapentin [Neurontin] 600 mg PO HS 04/24/20 06/21/21 Ascorbic Acid [Vitamin C] 500 mg PO DAILY 06/21/21 06/21/21 Cholecalciferol [Vitamin D3 (25 25 mcg PO DAILY 06/21/21 06/21/21 Mcg = 1000 Iu)] Ibuprofen [Motrin Ib] 400 mg PO Q8H PRN 06/21/21 06/21/21 Allergies Allergy/AdvReac Type Severity Reaction Status Date / Time No Known Allergies Allergy Verified 06/21/21 09:26 Review of Systems ROS Statement: Those systems with pertinent positive or pertinent negative responses have been documented in the HPI. ROS Other: All systems not noted in ROS Statement are negative. Constitutional: Denies: fever Eyes: Denies: eye pain ENT: Denies: ear pain Respiratory: Reports: as per HPI, cough Cardiovascular: Reports: as per HPI, chest pain Endocrine: Denies: fatigue Gastrointestinal: Denies: abdominal pain Genitourinary: Denies: dysuria Musculoskeletal: Denies: back pain Skin: Denies: rash Neurological: Denies: weakness Past Medical History Past Medical History: Fibromyalgia, GERD/Reflux, Seizure Disorder, Thyroid Disorder Additional Past Medical History / Comment(s): migraines, KIDNEY STONE, History of Any Multi-Drug Resistant Organisms: None Reported Past Surgical History: Section Additional Past Surgical History / Comment(s): ectopic, rt tube, Past Anesthesia/Blood Transfusion Reactions: No Reported Reaction Past Psychological History: Depression Smoking Status: Never smoker Past Alcohol Use History: None Reported Past Drug Use History: None Reported - Past Family History Mother Family Medical History: Pneumonia Additional Family Medical History / Comment(s): HEART PROBLEMS PER PT. General Exam Limitations: no limitations General appearance: alert, in no apparent distress Head exam: Present: normocephalic Eye exam: Present: normal appearance ENT exam: Present: normal oropharynx Neck exam: Present: normal inspection Respiratory exam: Present: normal lung sounds bilaterally, chest wall tenderness Cardiovascular Exam: Present: regular rate, normal rhythm Expanded Peripheral pulses: 2+: Radial (R), Radial (L), Dorsalis Pedis (R), Dorsalis Pedis (L) GI/Abdominal exam: Present: soft. Absent: tenderness Extremities exam: Present: normal inspection. Absent: pedal edema, calf tenderness Neurological exam: Present: alert Psychiatric exam: Present: normal affect, normal mood Skin exam: Present: normal color Course Vital Signs 06/21/21 06/21/21 06/21/21 08:25 09:00 09:02 Temperature 98.2 F Pulse Rate 105 H 100 97 Respiratory 20 18 Rate Blood Pressure 129/82 125/81 129/80 O2 Sat by Pulse 100 100 99 Oximetry 06/21/21 06/21/21 06/21/21 09:30 10:00 10:30 Temperature Pulse Rate 94 99 101 H Respiratory Rate Blood Pressure 129/80 117/74 119/69 O2 Sat by Pulse 99 98 99 Oximetry 06/21/21 06/21/21 11:00 12:00 Temperature Pulse Rate 97 95 Respiratory 18 Rate Blood Pressure 112/69 112/66 O2 Sat by Pulse 97 97 Oximetry - Reevaluation(s) Reevaluation #1: 06/21/21 09:53 Repeat EKG shows normal sinus rhythm with a rate of 98. [place] 154. QRS 78. QT 382. QTC 47. Normal axis. Normal QRS. No acute ST change. EKG Findings - EKG Comments: EKG Findings:: Normal sinus rhythm with a rate of 100. [place] 180. QRS 76. QT 368. QTC 474. Normal axis. Q wave in V2 V3. No acute ST change. Medical Decision Making - Medical Decision Making Patient reevaluated twice. Patient is sitting upright resting operably in bed and does request discharge home. Patient adds that many people in her house was sick including herself a couple weeks ago and patient did have cough. - Lab Data Result diagrams: 06/21/21 08:48 06/21/21 08:48 Lab Results 06/21/21 06/21/21 06/21/21 Range/Units 08:48 08:48 08:48 WBC 6.4 (3.8-10.6) k/uL RBC 4.27 (3.80-5.40) m/uL Hgb 13.2 (11.4-16.0) gm/dL Hct 39.6 (34.0-46.0) % MCV 92.8 (80.0-100.0) fL MCH 31.0 (25.0-35.0) pg MCHC 33.4 (31.0-37.0) g/dL RDW 12.1 (11.5-15.5) % Plt Count 202 (150-450) k/uL MPV 7.8 Neutrophils % 56 % Lymphocytes % 38 % Monocytes % 4 % Eosinophils % 0 % Basophils % 0 % Neutrophils # 3.6 (1.3-7.7) k/uL Lymphocytes # 2.4 (1.0-4.8) k/uL Monocytes # 0.3 (0-1.0) k/uL Eosinophils # 0.0 (0-0.7) k/uL Basophils # 0.0 (0-0.2) k/uL PT 10.1 (9.0-12.0) sec INR 0.9 (<1.2) APTT 24.8 (22.0-30.0) sec D-Dimer <0.17 (<0.60) mg/L FEU Sodium 137 (137-145) mmol/L Potassium 3.5 (3.5-5.1) mmol/L Chloride 104 (98-107) mmol/L Carbon Dioxide 25 (22-30) mmol/L Anion Gap 8 mmol/L BUN 12 (7-17) mg/dL Creatinine 0.75 (0.52-1.04) mg/dL Est GFR (CKD-EPI)AfAm >90 (>60 ml/min/1.73 sqM) Est GFR (CKD-EPI)NonAf >90 (>60 ml/min/1.73 sqM) Glucose 104 H (74-99) mg/dL Calcium 9.2 (8.4-10.2) mg/dL Magnesium 1.8 (1.6-2.3) mg/dL Total Bilirubin 0.3 (0.2-1.3) mg/dL AST 19 (14-36) U/L ALT 10 (4-34) U/L Alkaline Phosphatase 80 (38-126) U/L Troponin I (0.000-0.034) ng/mL Total Protein 6.8 (6.3-8.2) g/dL Albumin 4.1 (3.5-5.0) g/dL Amylase 51 (30-110) U/L Lipase 54 (23-300) U/L 06/21/21 Range/Units 08:48 WBC (3.8-10.6) k/uL RBC (3.80-5.40) m/uL Hgb (11.4-16.0) gm/dL Hct (34.0-46.0) % MCV (80.0-100.0) fL MCH (25.0-35.0) pg MCHC (31.0-37.0) g/dL RDW (11.5-15.5) % Plt Count (150-450) k/uL MPV Neutrophils % % Lymphocytes % % Monocytes % % Eosinophils % % Basophils % % Neutrophils # (1.3-7.7) k/uL Lymphocytes # (1.0-4.8) k/uL Monocytes # (0-1.0) k/uL Eosinophils # (0-0.7) k/uL Basophils # (0-0.2) k/uL PT (9.0-12.0) sec INR (<1.2) APTT (22.0-30.0) sec D-Dimer (<0.60) mg/L FEU Sodium (137-145) mmol/L Potassium (3.5-5.1) mmol/L Chloride (98-107) mmol/L Carbon Dioxide (22-30) mmol/L Anion Gap mmol/L BUN (7-17) mg/dL Creatinine (0.52-1.04) mg/dL Est GFR (CKD-EPI)AfAm (>60 ml/min/1.73 sqM) Est GFR (CKD-EPI)NonAf (>60 ml/min/1.73 sqM) Glucose (74-99) mg/dL Calcium (8.4-10.2) mg/dL Magnesium (1.6-2.3) mg/dL Total Bilirubin (0.2-1.3) mg/dL AST (14-36) U/L ALT (4-34) U/L Alkaline Phosphatase (38-126) U/L Troponin I <0.012 (0.000-0.034) ng/mL Total Protein (6.3-8.2) g/dL Albumin (3.5-5.0) g/dL Amylase (30-110) U/L Lipase (23-300) U/L - Radiology Data Radiology results: image reviewed (Original chest x-ray questions artifact. Repeat chest x-ray shows no heart attacks or concern for pneumothorax.) Disposition Clinical Impression: Pleurisy Disposition: HOME SELF-CARE Condition: Stable Instructions (If sedation given, give patient instructions): Pleurisy (ED) Additional Instructions: Please do follow-up with primary care physician in the next day or 2 for recheck. Return for increased pain, difficulty breathing, fever, worsening or change. [id number] Motrin as needed. Is patient prescribed a controlled substance at d/c from ED?: No Referrals: Sharon Reddy MD [Primary Care Provider] - 1-2 days Time of Disposition: 13:25
[2021-06-21 09:03] VITALS: RESP 18
--- NOTE | 2021-06-21 09:05 | XR ---
EXAMINATION TYPE: XR chest 2V DATE OF EXAM: 06/21/2021 COMPARISON: 04/24/2020 TECHNIQUE: PA and lateral views submitted. HISTORY: Chest pain FINDINGS: The lungs are clear and there is no pneumothorax, pleural effusion, or focal pneumonia. Suspect a l inear lucency along the lower right chest is soft tissue artifact. IMPRESSION: 1. Recommend repeat frontal view of the chest 2V for the linear reflection along the right lower lobe to exclude pneumothorax.
[2021-06-21 09:21] LABS: Basophils % (A) 0 %; Eosinophils % (A) 0 %; HCT 39.6 % (34.0-46.0); HGB 13.2 gm/dL (11.4-16.0); Lymphocytes # (A) 2.4 k/uL (1.0-4.8); Lymphocytes % (A) 38 %; MCHC 33.4 g/dL (31.0-37.0); MCV 92.8 fL (80.0-100.0); Mean Platelet Volume 7.8; Monocytes # (A) 0.3 k/uL (0-1.0); Monocytes % (A) 4 %; Neutrophils # (A) 3.6 k/uL (1.3-7.7); Neutrophils % (A) 56 %; Platelet Count 202 k/uL (150-450); RBC 4.27 m/uL (3.80-5.40); RDW 12.1 % (11.5-15.5); WBC 6.4 k/uL (3.8-10.6)
[2021-06-21 09:33] LABS: INR 0.9 (<1.2)
[2021-06-21 09:34] LABS: Partial Thromboplastin Time 24.8 sec (22.0-30.0); Prothrombin Time 10.1 sec (9.0-12.0)
[2021-06-21 09:49] LABS: ALT 10 U/L (4-34); AST 19 U/L (14-36); African American GFR (CKD) >90 (>60 ml/min/1.73 sqM); Albumin 4.1 g/dL (3.5-5.0); Alkaline Phosphatase 80 U/L (38-126); Amylase 51 U/L (30-110); Anion Gap 8 mmol/L; Blood Urea Nitrogen 12 mg/dL (7-17); Calcium 9.2 mg/dL (8.4-10.2); Carbon Dioxide 25 mmol/L (22-30); Chloride 104 mmol/L (98-107); Glucose 104 mg/dL (74-99); Lipase 54 U/L (23-300); Magnesium 1.8 mg/dL (1.6-2.3); Non-African American GFR(CKD) >90 (>60 ml/min/1.73 sqM); Potassium 3.5 mmol/L (3.5-5.1); Sodium 137 mmol/L (137-145); Total Bilirubin 0.3 mg/dL (0.2-1.3); Total Protein 6.8 g/dL (6.3-8.2)
[2021-06-21] MEDS ORDERED: MORPHINE SULFATE 4 MG/ML SYRINGE IVP STA (10:51)
--- NOTE | 2021-06-21 12:38 | XR ---
EXAMINATION TYPE: XR chest 1V portable DATE OF EXAM: 06/21/2021 COMPARISON: 06/21/2021 HISTORY: Chest pain TECHNIQUE: Single frontal view of the chest is obtained. FINDINGS: There is no focal air space opacity, pleural effusion, or pneumothorax seen. The cardiac silhouette size is within normal limits. The osseous structures are intact. IMPRESSION: No acute process.
[2021-06-21] MEDS ORDERED: ACET/COD 300 MG/30 MG STARTER PACK 6 TAB BTL PO STA (13:25)
[2021-06-21 13:34] VITALS: BP 119/78; PULSE 86
== END 2021-06-21 13:34 | disposition home or self-care (01) ==
LOC: EC 08:22
DX: R09.1 Pleurisy (principal); K21.9 Gastro-esophageal reflux disease without esophagitis; E07.9 Disorder of thyroid, unspecified; F32.9 Major depressive disorder, single episode, unspecified; Z87.442 Personal history of urinary calculi
CPT/HCPCS: 99285; 96374; 96375; 36415; 93005; 85379; 80053; 82150; 83690; 83735; 84484; 85025; 85610; 85730; 71045; 71046; J2270; J1885

== ENCOUNTER 2022-03-10 18:37 | Emergency (ER) | payer OTHER ==
[2022-03-10 20:42] VITALS: BP 140/83; PULSE 85; RESP 16; TEMP 97.7
[2022-03-10] MEDS ORDERED: LIDOCAINE 1% INJ 10MG/ML (5 ML VIAL-PF) SQ ONE (21:46)
--- NOTE | 2022-03-10 22:14 | ED ---
Wound/Laceration HPI - General Chief Complaint: Wound/Laceration Stated Complaint: Laceration R thumb Time Seen by Provider: 03/10/22 20:46 Source: patient Mode of arrival: ambulatory - History of Present Illness Initial Comments: Patient is a 36-year-old female who presents for evaluation of right thumb laceration. Patient cut it on a knife while cutting a cake today. Reports minimal pain. Denies numbness and tingling. States her tetanus is up-to-date within 5 years. - Related Data Home Medications Medication Instructions Recorded Confirmed Ferrous Sulfate [Feosol] 325 mg PO DAILY 04/24/20 06/21/21 Gabapentin 300 mg PO BID@0800,1400 04/24/20 06/21/21 Gabapentin [Neurontin] 600 mg PO HS 04/24/20 06/21/21 Ascorbic Acid [Vitamin C] 500 mg PO DAILY 06/21/21 06/21/21 Cholecalciferol [Vitamin D3 (25 25 mcg PO DAILY 06/21/21 06/21/21 Mcg = 1000 Iu)] Ibuprofen [Motrin Ib] 400 mg PO Q8H PRN 06/21/21 06/21/21 Allergies Allergy/AdvReac Type Severity Reaction Status Date / Time No Known Allergies Allergy Verified 03/10/22 20:42 Review of Systems ROS Statement: Those systems with pertinent positive or pertinent negative responses have been documented in the HPI. ROS Other: All systems not noted in ROS Statement are negative. Past Medical History Past Medical History: Fibromyalgia, GERD/Reflux, Seizure Disorder, Thyroid Disorder Additional Past Medical History / Comment(s): migraines, KIDNEY STONE, History of Any Multi-Drug Resistant Organisms: None Reported Past Surgical History: Section Additional Past Surgical History / Comment(s): ectopic, rt tube, Past Anesthesia/Blood Transfusion Reactions: No Reported Reaction Past Psychological History: Depression Smoking Status: Never smoker Past Alcohol Use History: None Reported Past Drug Use History: None Reported - Past Family History Mother Family Medical History: Pneumonia Additional Family Medical History / Comment(s): HEART PROBLEMS PER PT. General Exam General appearance: alert, in no apparent distress Head exam: Present: atraumatic, normocephalic, normal inspection Eye exam: Present: normal appearance, PERRL, EOMI. Absent: scleral icterus, conjunctival injection, periorbital swelling Respiratory exam: Present: normal lung sounds bilaterally. Absent: respiratory distress, wheezes, rales, rhonchi, stridor Cardiovascular Exam: Present: regular rate, normal rhythm, normal heart sounds. Absent: systolic murmur, diastolic murmur, rubs, gallop, clicks Extremities exam: Present: other (1 cm laceration over right thumb. ne urovascularly intact ) Neurological exam: Present: alert, oriented X3, CN II-XII intact Psychiatric exam: Present: normal affect, normal mood Course Vital Signs 03/10/22 20:37 Temperature 97.7 F Pulse Rate 85 Respiratory 16 Rate Blood Pressure 140/83 O2 Sat by Pulse 100 Oximetry Procedures - Laceration Laceration #1 Consent Obtained: verbal consent Indication: laceration Site: other (right thumb ) Description: linear Depth: simple, single layer Anesthetic Used: lidocaine 1% Anesthesia Technique: nerve block Pre-repair: wound explored, irrigated extensively Type of Sutures: nylon Size of Sutures: 5-0 Number of Sutures: 2 Technique: simple, interrupted Patient Tolerated Procedure: well, no complications Medical Decision Making - Medical Decision Making This is a 36-year-old female who presents with right thumb laceration. Thorough history and examination were performed. There is a 1 cm laceration over the tip of the right pointer finger. Neurovascularly intact. The wound was explored and irrigated thoroughly. It was well approximated with 2 sutures. Patient tolerated the procedure well with no complication. Wound care instruction provided. Tetanus booster not indicated. Patient to report back to the emergency department in 7-10 days for suture removal. Return parameters discussed. Patient verbalizes understanding and is agreeable to this plan. Dr. Higginbotham is my attending. Disposition Clinical Impression: Laceration Disposition: HOME SELF-CARE Condition: Good Instructions (If sedation given, give patient instructions): Care For Your Stitches (ED), Laceration (ED) Additional Instructions: Leave wound uncovered. Keep wound clean and dry. Wash with a mild soap. Take Tylenol or anti-inflammatories such as Motrin for pain. Follow-up with primary care provider in 1-2 days. Return for suture removal in 7-10 days. Report back to the emergency department if you experience new, concerning, or worsening symptoms. Is patient prescribed a controlled substance at d/c from ED?: No Referrals: None,Stated [Primary Care Provider] - 1-2 days Time of Disposition: 22:14
[2022-03-10] MEDS ORDERED: KETOROLAC 15 MG/ML 1 ML VIAL IM STA (22:45)
== END 2022-03-10 22:52 | disposition home or self-care (01) ==
LOC: EC 18:37
DX: S61.011A Laceration without foreign body of right thumb without damage to nail, initial encounter (principal); W26.0XXA Contact with knife, initial encounter
CPT/HCPCS: 12001; 99282; 96372; J2001; J1885

== ENCOUNTER → 2022-09-17 | Outpatient (CLI) | payer OTHER ==
--- NOTE | 2022-09-17 16:49 | US ---
EXAMINATION TYPE: US thyroid st tissue head/neck DATE OF EXAM: 09/17/2022 COMPARISON: NONE CLINICAL HISTORY: E04.1 NONTOXIC SINGLE THYROID NODULE. THYROID NODULES GLAND SIZE: Right Lobe: 5.5 x 2.2 x 1.8 cm Overall Parenchyma: heterogenous Left Lobe: 4.9 x 1.8 x 1.7 cm Overall Parenchyma: heterogeneous Isthmus Thickness: 0.3 cm NODULES RIGHT: # of nodules measured on right: 2 1. 1.1 X 0.9 x 0.7 cm, mid , solid or almost completely solid, hypoechoic nodule, which is wider th an tall, with smooth margins, without echogenic foci. TR4 Prior size: 0.9 x 0.6 x 0.5 cm 2. 0.7 X 0.6 x 0.5 cm, lower , solid or almost completely solid, hypoechoic nodule, which is wider than tall, with smooth margins, with echogenic foci. Prior size: 0.5 x 0.6 x 0.4 cm LEFT: # of nodules measured on left: 1 1. 0.7 X 0.6 x 0.5 cm, mid, solid or almost completely solid, hypoechoic nodule, which is wider zeferino n tall, with smooth margins, without echogenic foci. Prior size: 0.7 x 0.6 x 0.3 cm ISTHMUS: # of nodules measured in the isthmus: 0 Bilateral neck scanned, no evidence of lymphadenopathy. IMPRESSION: Moderately suspicious nodule right lobe thyroid. Follow-up 1 year is recommended 2017 ACR TI-RADS LEVEL: TR-RADS 4 - Moderately Suspicious: Follow if > 1 cm, FNA if > 1.5 cm *Highest TI-RADS level nodule reported
== END | disposition home or self-care (01) ==
LOC: RADUSWWP 08:12
PROVIDERS: ATTEND Internal Medicine
DX: E04.1 Nontoxic single thyroid nodule (principal)
CPT/HCPCS: 76536

== ENCOUNTER → 2022-12-30 | Outpatient (CLI) | payer OTHER ==
[2022-12-30 23:32] LABS: African American GFR (CKD) 132.6 (60.0-200.0); Anion Gap 11.6 mmol/L (10.00-18.00); BUN/Creat Ratio 16.19 Ratio (12.00-20.00); Blood Urea Nitrogen 10.7 mg/dL (9.0-27.0); Calcium 9.5 mg/dL (8.7-10.3); Carbon Dioxide 26.6 mmol/L (20.0-27.5); Non-African American GFR(CKD) 114.4 (60.0-200.0); Potassium 4.1 mmol/L (3.5-5.5)
[2022-12-31 02:58] LABS: C-Peptide 2.73 ng/mL (0.81-3.85)
== END | disposition home or self-care (01) ==
LOC: LABWHC1 13:46
PROVIDERS: ATTEND Internal Medicine
DX: E16.2 Hypoglycemia, unspecified (principal)
CPT/HCPCS: 36415; 80048; 82533; 83525; 84206; 84681; 86337

== ENCOUNTER 2023-03-02 06:31 | Day surgery (SDC) | payer OTHER ==
[~2023-03-02 06:31] MED LIST: Pre Op ABX Message 1 EACH MISC MISCELLANE ONE
[2023-03-02] MEDS ORDERED: DEXAMETHASONE SOD PHOSPHATE 4 MG/ML 1 ML VIAL IV ONE (06:44)
[2023-03-02] MEDS ORDERED: ONDANSETRON 4 MG/2 ML VIAL IVP ONE (06:44)
[2023-03-02] MEDS ORDERED: HYDROmorphone 0.5 MG/0.5 ML SYRINGE IVP PRN (06:44)
[2023-03-02] MEDS ORDERED: LIDOCAINE 1% (10MG/ML) FOR IV START INTRADERMA PRN (06:44)
[2023-03-02] MEDS ORDERED: droPERidol 5 MG/2 ML VIAL IVP ONE (06:44)
[2023-03-02] MEDS ORDERED: LACTATED RINGERS 1,000 ML IV SCH (06:44)
--- NOTE | 2023-03-02 06:49 | P.HPOB ---
History of Present Illness H&P Date: 03/02/23 Chief Complaint: family planning 37 year old presents for laparoscoic tubal ligation. Review of Systems All systems: negative Constitutional: Denies chills, Denies fever Eyes: denies blurred vision, denies pain Ears, nose, mouth and throat: Denies headache, Denies sore throat Cardiovascular: Denies chest pain, Denies shortness of breath Respiratory: Denies cough Gastrointestinal: Denies abdominal pain, Denies diarrhea, Denies nausea, Denies vomiting Genitourinary: Denies dysuria, Denies hematuria Musculoskeletal: Denies myalgias Integumentary: Denies pruritus, Denies rash Neurological: Denies numbness, Denies weakness Psychiatric: Denies anxiety, Denies depression Endocrine: Denies fatigue, Denies weight change Past Medical History Past Medical History: Fibromyalgia, Musculoskeletal Disorder, Seizure Disorder, Thyroid Disorder Additional Past Medical History / Comment(s): migraines, KIDNEY STONE, iron deficiency anemia, cervical, thoracic & lumbar disc problems, had 3 seizures- last seizure 2012-not sure of cause, reactive hypoglycemia, thyroid nodules History of Any Multi-Drug Resistant Organisms: None Reported Past Surgical History: Section Additional Past Surgical History / Comment(s): surg. for ectopic , C/Sx2, pain clinic procedures Past Anesthesia/Blood Transfusion Reactions: No Reported Reaction Additional Past Anesthesia/Blood Transfusion Reaction / Comment(s): woke up during pain procedure Smoking Status: Former smoker - Past Family History Mother Family Medical History: Pneumonia Additional Family Medical History / Comment(s): HEART PROBLEMS PER PT. Medications and Allergies Home Medications Medication Instructions Recorded Confirmed Type Ferrous Sulfate [Feosol] 325 mg PO DAILY 04/24/20 02/25/23 History Gabapentin 300 mg PO BID@0800,1400 04/24/20 02/25/23 History Gabapentin [Neurontin] 600 mg PO HS 04/24/20 02/25/23 History Ibuprofen [Motrin Ib] 400 mg PO Q8H PRN 06/21/21 02/25/23 History Cyanocobalamin [Vitamin B-12] 500 mcg PO DAILY 02/25/23 02/25/23 History buPROPion XL [Wellbutrin XL] 150 mg PO DAILY 02/25/23 02/25/23 History tiZANidine HCL [Zanaflex] 8 mg PO HS 02/25/23 02/25/23 History Allergies Allergy/AdvReac Type Severity Reaction Status Date / Time No Known Allergies Allergy Verified 02/25/23 14:43 Exam Osteopathic Statement: *. No significant issues noted on an osteopathic structural exam other than those noted in the History and Physical/Consult. Heart: Regular rate and rhythm Lungs: Clear to auscultation bilaterally Abdomen: Soft, nontender Extremities: Negative Homans sign Assessment and Plan (1) Family planning Current Visit: Yes Status: Acute Code(s): Z30.09 - ENCOUNTER FOR OTH GENERAL CNSL AND ADVICE ON CONTRACEPTION SNOMED Code(s): 434633855 Plan: 1. laparoscopic tubal ligation
[2023-03-02] MEDS ORDERED: BUPIVACAINE (PF) 0.25% 30 ML VIAL SQ ONE ×3 (07:12→08:07)
[2023-03-02 07:19] LABS: Glucose,Whole Blood 93 mg/dL (70-110)
[2023-03-02 07:22] VITALS: TEMP 98
[2023-03-02] MEDS ORDERED: PROPOFOL 10 MG/ML 20 ML VIAL IV ONE (07:30)
[2023-03-02] MEDS ORDERED: SUCCINYLCHOLINE CHLORIDE 200 MG/10 ML VIAL IV ONE (07:30)
[2023-03-02] MEDS ORDERED: fentaNYL (PF) 50 MCG/ML 2 ML AMP ONE (07:30)
[2023-03-02] MEDS ORDERED: MIDAZOLAM 2 MG/2 ML VIAL ONE (07:30)
[2023-03-02] MEDS ORDERED: NEOSTIGMINE 1 MG/ML 10 ML VIAL ONE (07:30)
[2023-03-02] MEDS ORDERED: ROCURONIUM 10 MG/ML (5 ML VIAL) IV ONE (07:30)
[2023-03-02] MEDS ORDERED: LIDOCAINE 2% INJ 20 MG/ML (2 ML VIAL) ONE (07:30)
[2023-03-02] MEDS ORDERED: GLYCOPYRROLATE 0.2 MG/ML 2 ML VIAL ONE (07:30)
[2023-03-02] MEDS ORDERED: diphenhydrAMINE 50 MG/ML 1 ML VIAL ONE (07:30)
[2023-03-02] MEDS ORDERED: KETOROLAC 15 MG/ML 1 ML VIAL ONE (07:30)
--- NOTE | 2023-03-02 08:17 | P.OP ---
Date of Procedure: 03/02/23 Preoperative Diagnosis: 1. family planning Postoperative Diagnosis: 1. family planning Procedure(s) Performed: Laparoscopic tubal ligation Anesthesia: ANDREEA Surgeon: Marianela Kelley Estimated Blood Loss (ml): 3 IV fluids (ml): 200 Urine output (ml): 15 Pathology: none sent Condition: stable Disposition: PACU Operative Findings: Normal uterus, evidence of partial salpingectomy in the left normal fallopian tube on the right, normal ovaries Description of Procedure: Patient was taken to the operating room where general anesthesia was obtained without difficulty. She was prepped and draped in normal sterile fashion in the dorsal lithotomy position, legs placed in the Hua stirrups. Bladder drained of all urine. Lincoln speculum placed in the vagina and the anterior lip the cervix was grasped with single-tooth tenaculum. The uterus is sounded to 7 cm and the kroner manipulator was placed. Attention was then turned to the abdomen and gloves were changed. A 10 mm infraumbilical incision was made the scalpel and 10 mm optical trocar was placed under direct visualization. A 5 mm suprapubic Incision was made and a 5 mm optical trocar was placed under direct visualization. Survey of the pelvis revealed normal uterus, evidence of partial salpingectomy on the left fallopian tube. Normal right fallopian tube and ovaries. The right fallopian tube was grasped with a Kleppinger and fulgurated 2-3 cm in the ampullar portion. All instruments were then removed from the abdomen and vagina. The 10 mm infraumbilical incision was closed with 0 Vicryl and the fascial layer and then 4-0 Vicryl in a subcuticular fashion. The 5 mm incision was closed with 4-0 Vicryl in a subcuticular fashion. Patient tolerated procedure well, sponge and instrument counts correct 2 and she was taken to recovery room in stable condition.
[2023-03-02] MEDS ORDERED: HYDROmorphone 0.5 MG/0.5 ML SYRINGE IVP ONE ×2 (08:35→08:51)
[2023-03-02 09:27] VITALS: BP 112/82; RESP 20
[2023-03-02 09:39] VITALS: PULSE 69
== END 2023-03-02 10:19 | disposition home or self-care (01) ==
LOC: OR 06:31
PROVIDERS: ATTEND Obstetrics & Gynecology
DX: Z30.2 Encounter for sterilization (principal); M79.7 Fibromyalgia; G40.909 Epilepsy, unspecified, not intractable, without status epilepticus; E07.9 Disorder of thyroid, unspecified; G43.909 Migraine, unspecified, not intractable, without status migrainosus; N20.0 Calculus of kidney; D50.9 Iron deficiency anemia, unspecified; M51.35 Other intervertebral disc degeneration, thoracolumbar region; Z98.891 History of uterine scar from previous surgery; Z87.891 Personal history of nicotine dependence; Z79.899 Other long term (current) drug therapy
CPT/HCPCS: 81025; 58670; J2250; J0330; J1200; J1100; J2710; J2405; J3010; J1885; J2704; J1170; J2001

== ENCOUNTER → 2024-03-29 | Outpatient (CLI) | payer OTHER ==
--- NOTE | 2024-03-29 21:28 | US ---
EXAMINATION TYPE: US thyroid st tissue head/neck DATE OF EXAM: 03/29/2024 COMPARISON: NONE CLINICAL INDICATION: Female, 38 years old with history of E04.1 THYROID NODULE; thyroid nodules. GLAND SIZE: Right Lobe: 5.3 x 1.7 x 2.3 cm Overall Parenchyma: homogeneous Left Lobe: 5.0 x 1.5 x 1.7 cm Overall Parenchyma: homogeneous Isthmus Thickness: cm NODULES RIGHT: # of nodules measured on right: 2 1. 1.0 X .5 x .9 cm, mid , solid or almost completely solid, hypoechoic nodule, which is wider than tall, with smooth margins, without echogenic foci. TR 4 Prior size: 1.1 x .7 x .9 cm 2. .7 X .4 x .5 cm, lower medial, solid or almost completely solid, hypoechoic nodule, which is wid er than tall, with smooth margins, without echogenic foci. Prior size: .7 x .5 x .6 cm LEFT: # of nodules measured on left: 1 1. .8 X .5 x .6 cm, mid medial, solid or almost completely solid, hypoechoic nodule, which is wider than tall, with smooth margins, without echogenic foci. Prior size: .7 x .5 x .6 cm ISTHMUS: # of nodules measured in the isthmus: 0 Bilateral neck scanned, no evidence of lymphadenopathy. IMPRESSION: Moderately suspicious nodule mid right lobe thyroid. Follow-up in one year is recommended 2017 ACR TI-RADS LEVEL: TR-RADS 4 - Moderately Suspicious: Follow if > 1 cm, FNA if > 1.5 cm *Highest TI-RADS level nodule reported
== END | disposition home or self-care (01) ==
LOC: RADUSWWP 14:07
PROVIDERS: ATTEND Internal Medicine
DX: E04.1 Nontoxic single thyroid nodule (principal); R22.0 Localized swelling, mass and lump, head
CPT/HCPCS: 76536

== ENCOUNTER → 2024-03-29 | Outpatient (CLI) | payer OTHER ==
--- NOTE | 2024-04-03 12:01 | MM ---
Reason for Exam: Screening (asymptomatic). Baseline mammogram. Patient History: Menarche at age 15. First Full-Term at age 27. Last menstrual period: 03/14/2024 Risk Values: Melanie 5 year model risk: 0.4%. NCI Lifetime model risk: 11.3%. Prior Study Comparison: Patient's first Mammogram. No prior studies available for comparison. Tissue Density: There are scattered areas of fibroglandular density. Findings: Analyzed By CAD. The pattern is symmetrical. Scattered benign punctate calcifications are present. No suspicious groups of microcalcifications, spiculated or lobular masses, architectural distortion or other secondary signs of malignancy are mammographically apparent. Overall Assessment: Benign, BI-RAD 2 Management: Screening Mammogram of both breasts in 1 year. A negative mammogram report should not preclude additional follow up of suspicious palpable abnormalities. Patient should continue monthly self breast exam. A clinical breast exam by your physician is recommended on an annual basis and results should be correlated with mammographic findings. Note on Melanie scores and lifetime risk: 1. A Melanie score greater than 3% is considered moderate risk. If this is the case, consider specialist referral to assess eligibility for a risk reducing agent. 2. If overall lifetime risk for the development of breast cancer is 20% or higher, the patient may qualify for future screening with alternating mammogram and breast MRI. Electronically signed and approved by: Pablo Fam D.O. Radiologis
== END | disposition home or self-care (01) ==
LOC: RADMAMWWP 14:05
PROVIDERS: ATTEND Obstetrics & Gynecology
DX: Z12.31 Encounter for screening mammogram for malignant neoplasm of breast (principal); R92.323 Mammographic fibroglandular density, bilateral breasts
CPT/HCPCS: 77063; 77067